=== PATIENT | male | born 1940 | race Caucasian/White ===

== ENCOUNTER 2019-09-21 08:13 | Outpatient (CLI) | payer MEDICARE, SELFPAY ==
--- NOTE | ~2019-09-21 | XR_ITS ---
EXAMINATION: XR chest 2V DATE: 09/21/2019 08:51 INDICATION: Hypertension. TECHNIQUE: Frontal and lateral views of the chest were obtained. COMPARISON: Chest 2 views 11/19/2018, CT abdomen and pelvis 04/23/2015 FINDINGS: The chest demonstrates clear lungs without pneumonia, pleural effusion, or pneumothorax. Th e heart size is normal. IMPRESSION: 1. No acute cardiopulmonary disease. Reviewed, dictated and finalized at location A.
[2019-09-21 08:31] LABS: Basophils Absolute Auto 0.02 K/mm3 (0.00-0.10); Basophils Percent Auto 0.3 % (0.0-1.0); Eosinophils Absolute Auto 0.01 K/mm3 (0.02-0.50); Eosinophils Percent Auto 0.2 % (1.0-6.0); Hematocrit 39.7 % (37.0-46.0); Hemoglobin 13.3 g/dL (12.4-15.3); Immature Granulocyte Absolute 0.01 K/mm3 (0.00-0.00); Immature Granulocyte Percent A 0.2 % (0.0-0.0); Lymphocytes Absolute Auto 1.15 K/mm3 (1.10-4.50); Lymphocytes Percent Auto 19.9 % (18.0-42.0); Mean Corpuscular HGB Conc 33.5 g/dL (32.0-36.0); Mean Corpuscular Hemoglobin 29.8 pg (27.0-31.0); Mean Corpuscular Volume 88.8 fL (78.0-102.0); Mean Platelet Volume 9.2 fl (8.7-11.0); Monocytes Absolute Auto 0.59 K/mm3 (0.10-0.90); Monocytes Percent Auto 10.2 % (2.0-11.0); Neutrophils Percent Auto 69.2 % (50.0-70.0); Platelet Count Result 193 K/mm3 (150-420); Red Blood Count 4.47 M/mm3 (4.70-6.10); White Blood Count 5.8 K/mm3 (4.8-10.8)
[2019-09-21 09:07] LABS: MALB Creatinine Ratio 7.4 mg/g (0-30); Microalbumin Urine Random 11.3 mg/L
[2019-09-21 09:36] LABS: Alanine Aminotransferase 24 U/L (16-63); Albumin Level 3.6 g/dL (3.4-5.0); Alkaline Phosphatase 66 U/L (46-116); Anion Gap 10.5 mmol/L (7-16); Aspartate Amino Transferase 20 U/L (15-37); Bilirubin,Total 0.8 mg/dL (0.00-1.00); Blood Urea Nitrogen 22 mg/dL (7-18); Carbon Dioxide 30 mmol/L (21-32); Chloride 106 mmol/L (98-108); Cholesterol 149 mg/dL (0-200); Creatine Kinase 100 U/L (39-308); Estimated Glomerular Filt Rate > 60; Glucose 91 mg/dL (70-99); HDL Direct 49 mg/dL (40-60); LDL Cholesterol Calculated 81 mg/dL (<130); Osmolality Calculated 297 mOsm/kg (285-295); Potassium 4.5 mmol/L (3.5-5.1); Prostate Specific Antigen 2.3 ng/mL (< OR = 4.0); Sodium 142 mmol/L (136-145); Thyroid Stimulating Hormone 2.88 uIU/mL (0.36-3.74); Total Protein 6.6 g/dL (6.4-8.2); Triglycerides 93 mg/dL (0-150)
== END 2019-09-21 08:14 | disposition home or self-care (01) ==
PROVIDERS: PCP Family Medicine; Visit Provider Family Medicine
DX: E78.2 Mixed hyperlipidemia (principal); I10 Essential (primary) hypertension; Z12.5 Encounter for screening for malignant neoplasm of prostate
CPT/HCPCS: 36415; 71046; 80053; 80061; 82043; 82550; 84153; 84443; 85025; G0103

== ENCOUNTER 2020-01-17 12:34 | Outpatient (CLI) | payer MEDICARE, SELFPAY ==
[2020-01-17 13:24] LABS: Influenza Control Valid (Valid)
[2020-01-17 13:57] LABS: Alanine Aminotransferase 30 U/L (16-63); Albumin Level 3.6 g/dL (3.4-5.0); Alkaline Phosphatase 68 U/L (46-116); Anion Gap 8 mmol/L (8-16); Aspartate Amino Transferase 30 U/L (15-37); Bilirubin,Total 1.5 mg/dL (0.00-1.00); Blood Urea Nitrogen 26 mg/dL (7-18); Calcium 8.7 mg/dL (8.5-10.1); Carbon Dioxide 27 mmol/L (21-32); Chloride 103 mmol/L (98-108); Creatine Kinase 178 U/L (39-308); Estimated Glomerular Filt Rate > 60; Glucose 97 mg/dL (70-99); Osmolality Calculated 290 mOsm/kg (285-295); Potassium 4.6 mmol/L (3.5-5.1); Sodium 138 mmol/L (136-145); Total Protein 6.5 g/dL (6.4-8.2)
[2020-01-17 16:59] LABS: Basophils Absolute Auto 0.01 K/mm3 (0.00-0.10); Basophils Percent Auto 0.2 % (0.0-1.0); Hematocrit 40.2 % (37.0-46.0); Hemoglobin 13.2 g/dL (12.4-15.3); Immature Granulocyte Absolute 0.02 K/mm3 (0.00-0.00); Immature Granulocyte Percent A 0.4 % (0.0-0.0); Lymphocytes Absolute Auto 0.49 K/mm3 (1.10-4.50); Lymphocytes Percent Auto 10.2 % (18.0-42.0); Mean Corpuscular HGB Conc 32.8 g/dL (32.0-36.0); Mean Corpuscular Hemoglobin 28.9 pg (27.0-31.0); Monocytes Absolute Auto 0.45 K/mm3 (0.10-0.90); Monocytes Percent Auto 9.4 % (2.0-11.0); Neutrophils Absolute Auto 3.8 K/mm3 (1.7-7.2); Neutrophils Percent Auto 79.8 % (50.0-70.0); Platelet Count Result 145 K/mm3 (150-420); Red Blood Count 4.57 M/mm3 (4.70-6.10); Red Cell Distribution Width 13.3 % (11.6-14.4); White Blood Count 4.8 K/mm3 (4.8-10.8)
[2020-01-17 17:10] LABS: Bilirubin Direct 0.3 mg/dL (0-0.2)
[2020-01-18 01:31] LABS: SARS-CoV-2 RNA PCR Negative
== END 2020-01-17 12:35 | disposition home or self-care (01) ==
LOC: CHSLAB 12:36
PROVIDERS: PCP Family Medicine; Visit Provider Family Medicine
DX: R53.83 Other fatigue (principal); E78.2 Mixed hyperlipidemia; R05 Cough; Z20.828 Contact with and (suspected) exposure to other viral communicable diseases
CPT/HCPCS: 80053; 82248; 82550; 85025; 86038; 87635; 87804; C9803; U0003

== ENCOUNTER 2020-01-21 09:43 | Outpatient (CLI) | payer MEDICARE, SELFPAY ==
--- NOTE | ~2020-01-21 | XR_ITS ---
EXAMINATION: XR chest 2V EXAM DATE: 01/21/2020 10:13 INDICATION: Fatigue, cough. TECHNIQUE: Frontal and lateral projections of the chest obtained and reviewed. Comparison is made to prior examination from 09/21/2019. FINDINGS: The lungs are clear. There are no pleural effusions. The cardiomediastinal silhouette is within normal limits. There is no pneumothorax suspected. Patient has diffuse idiopathic skeletal h yperostosis (DISH). IMPRESSION: No acute cardiopulmonary findings. Reviewed, dictated and finalized at location A. 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
[2020-01-21 10:28] LABS: Alanine Aminotransferase 42 U/L (16-63); Albumin Level 3.3 g/dL (3.4-5.0); Alkaline Phosphatase 64 U/L (46-116); Anion Gap 6 mmol/L (8-16); Aspartate Amino Transferase 41 U/L (15-37); Bilirubin,Total 1.2 mg/dL (0.00-1.00); Blood Urea Nitrogen 25 mg/dL (7-18); Calcium 8.4 mg/dL (8.5-10.1); Carbon Dioxide 28 mmol/L (21-32); Chloride 103 mmol/L (98-108); Creatine Kinase 159 U/L (39-308); Estimated Glomerular Filt Rate > 60; Glucose 93 mg/dL (70-99); Osmolality Calculated 288 mOsm/kg (285-295); Potassium 4.3 mmol/L (3.5-5.1); Sodium 137 mmol/L (136-145); Total Protein 6.6 g/dL (6.4-8.2); Troponin I 0.03 ng/mL (0.00-0.056)
== END 2020-01-21 09:44 | disposition home or self-care (01) ==
LOC: CHSLAB 09:47
PROVIDERS: PCP Family Medicine; Visit Provider Family Medicine
DX: I25.10 Atherosclerotic heart disease of native coronary artery without angina pectoris (principal); R53.83 Other fatigue; R05 Cough
CPT/HCPCS: 36415; 71046; 80053; 82550; 82553; 84484

== ENCOUNTER 2020-03-30 16:02 | Outpatient (CLI) | payer MEDICARE, SELFPAY ==
--- NOTE | ~2020-03-30 | CT_ITS ---
EXAMINATION: CT abdomen pelvis wo con DATE: 03/30/2020 17:00 INDICATION: Right flank pain TECHNIQUE: Computed tomography (CT) of the abdomen and pelvis was performed without intravenous contr ast. The dose-length product (DLP) was 726.51 mGy-cm. Automated exposure control and iterative recons truction technique were employed. COMPARISON: 04/23/2015 FINDINGS: There are multiple chronic smooth walled cysts in the visualized lung bases which may relat e to emphysema. The heart size is normal. The liver, spleen, pancreas, gallbladder, and adrenal gland s are normal. There is a 7 mm stone at the right ureteropelvic junction which causes mild hydronephro sis. Nonobstructing stones of the right kidney measure 6 mm and 8 mm in the upper and lower poles, re spectively. Nonobstructing stones of the left kidney measure up to 3 mm. No pathologically enlarged a bdominal or pelvic lymph nodes are identified. There is no free intraperitoneal gas or evidence of margareth wel obstruction. There is calcified atherosclerosis of the aorta and many of the other arteries. [place] catina diverticulosis is present without evidence of diverticulitis. The appendix is normal. There is se maura lumbar spondylosis. IMPRESSION: 1. 7 mm stone at the right ureteropelvic junction causing mild hydronephrosis. Consider KUB for treat ment planning purposes. 2. Bilateral nonobstructing nephrolithiasis. Reviewed, dictated and finalized at location A. ZE PLATER IMPRESSION: 1. 7 mm stone at the right ureteropelvic junction causing mild hydronephrosis. Consider KUB for treatment planning purposes. 2. Bilateral nonobstructing nephrolithiasis.
[2020-03-30 16:21] LABS: Add Urine Microscopic? YES; Appearance Urine Clear (Clear); Basophils Absolute Auto 0.02 K/mm3 (0.00-0.10); Basophils Percent Auto 0.2 % (0.0-1.0); Bilirubin Urine Negative (Negative); Blood Urine 3+ (Negative); Color Urine Yellow (Yellow); Glucose Urine UA Negative (Negative); Hemoglobin 13.4 g/dL (12.4-15.3); Immature Granulocyte Absolute 0.02 K/mm3 (0.00-0.00); Immature Granulocyte Percent A 0.2 % (0.0-0.0); Ketones Urine Trace (Negative); Leukocyte Esterase Ur Negative (Negative); Lymphocytes Absolute Auto 1.21 K/mm3 (1.10-4.50); Lymphocytes Percent Auto 12.2 % (18.0-42.0); Mean Corpuscular HGB Conc 32.7 g/dL (32.0-36.0); Mean Corpuscular Hemoglobin 28.5 pg (27.0-31.0); Mean Platelet Volume 9.3 fl (8.7-11.0); Monocytes Absolute Auto 0.66 K/mm3 (0.10-0.90); Monocytes Percent Auto 6.7 % (2.0-11.0); Neutrophils Percent Auto 80.7 % (50.0-70.0); Nitrate Urine Negative (Negative); Platelet Count Result 248 K/mm3 (150-420); Protein Urine 1+ (Negative); Red Blood Count 4.71 M/mm3 (4.70-6.10); Red Cell Distribution Width 12.5 % (11.6-14.4); Specific Grav Ur >= 1.030 (1.010-1.020); White Blood Count 9.9 K/mm3 (4.8-10.8)
[2020-03-30 16:30] LABS: RBC Urine >75 /hpf (0-2); WBC Urine 0-3 /hpf (0-3)
[2020-03-30 16:31] LABS: Bacteria Urine Trace /hpf; Mucus Urine Few /lpf; Squamous Epithelial Cell Urine Rare /hpf (Few)
[2020-03-30 16:52] LABS: Anion Gap 11 mmol/L (8-16); Blood Urea Nitrogen 20 mg/dL (7-18); Calcium 8.9 mg/dL (8.5-10.1); Carbon Dioxide 28 mmol/L (21-32); Chloride 104 mmol/L (98-108); Estimated Glomerular Filt Rate 58; Glucose 93 mg/dL (70-99); Osmolality Calculated 298 mOsm/kg (285-295); Potassium 4.3 mmol/L (3.5-5.1); Sodium 143 mmol/L (136-145)
== END 2020-03-30 16:03 | disposition home or self-care (01) ==
PROVIDERS: PCP Family Medicine; Visit Provider Family Medicine
DX: R10.9 Unspecified abdominal pain (principal)
CPT/HCPCS: 36415; 74176; 80048; 81001; 85025

== ENCOUNTER 2020-04-07 07:57 | Outpatient (CLI) | payer MEDICARE, SELFPAY ==
--- NOTE | ~2020-04-07 | XR_ITS ---
EXAMINATION: XR abdomen/kub 1V EXAM DATE: 04/07/2020 08:20 INDICATION: Right ureteral stone, flank pain. TECHNIQUE: Frontal projection of the upper abdomen, frontal projection lower abdomen/pelvis for inter pretation. Comparison is made to prior examination from 2016. Correlation was made with CT abdomen . FINDINGS: There appear to be 2 contiguous right proximal ureteral stones projecting over the L3 kent sverse process, larger measuring about 8 mm. There is additional right inferior calyceal stone. Moder ate amount of colonic stool. Nonobstructive bowel gas pattern. Moderate lower lumbar spondylosis and bilateral hip primary osteoarthritis. IMPRESSION: 1. Right proximal ureteral stone, nephrolithiasis identified. Reviewed, dictated and finalized at location A. 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
== END 2020-04-07 07:58 | disposition home or self-care (01) ==
LOC: CHSLAB 07:58 → CHSIMG 07:59
PROVIDERS: PCP Urology; Visit Provider Urology
DX: N20.1 Calculus of ureter (principal)
CPT/HCPCS: 74018

== ENCOUNTER 2020-04-16 09:57 | Outpatient (CLI) | payer MEDICARE, SELFPAY ==
[2020-04-16 10:26] LABS: Partial Thromboplastin Time 24.8 SEC (23.90-30.70); Prothrombin Time 10.3 Seconds (9.50-12.10)
== END 2020-04-16 09:58 | disposition home or self-care (01) ==
LOC: CHSLAB 09:59
PROVIDERS: PCP Family Medicine; Visit Provider Anesthesiology
DX: N20.0 Calculus of kidney (principal); Z01.812 Encounter for preprocedural laboratory examination; R10.9 Unspecified abdominal pain
CPT/HCPCS: 36415; 85610; 85730; 87086

== ENCOUNTER → 2020-04-21 03:56 | Outpatient (CLI) | payer MEDICARE, SELFPAY ==
[2020-04-22 18:18] LABS: SARS-CoV-2 RNA PCR Negative
== END ==
PROVIDERS: PCP Family Medicine; Visit Provider Urology
DX: Z01.812 Encounter for preprocedural laboratory examination (principal); Z20.822 Contact with and (suspected) exposure to COVID-19
CPT/HCPCS: C9803; U0003; U0005

== ENCOUNTER 2020-04-24 01:29 | Day surgery (SDC) | payer MEDICARE, SELFPAY ==
[2020-04-14 13:56] VITALS: BMI 29.2
--- NOTE | 2020-04-23 15:46 | WPDANESEPPF ---
Anes - Initial Pre Proc Eval Procedure: Operation Date: 04/24/20 08:30 Proposed Procedures p Right Ureteral Extracorporeal Shock Wave Lithotripsy - Flavio Mckeon MD Date/Time: 04/23/20 15:46 Surgeon: Flavio Mckeon MD Pre Op Diagnosis: right ureteral stone Patient Data Age: 79 Gender: M Height: 1.83 m Weight: 97.72 kg Allergies Allergy/AdvReac Type Severity Reaction Status Date / Time No Known Allergies Allergy Unverified 04/24/20 06:53 Home Medications Medication Instructions Recorded Confirmed Type atorvastatin 40 mg DAILY 04/14/20 04/24/20 History clopidogrel 75 mg DAILY 04/14/20 04/24/20 History losartan 25 mg DAILY 04/14/20 04/24/20 History metoprolol succinate 50 mg PO DAILY 04/14/20 04/24/20 History tamsulosin 0.4 mg PO HS 04/14/20 04/24/20 History aspirin [Adult Low Dose Aspirin] 81 mg PO DAILY 04/24/20 04/24/20 History Patient hx anesthesia problems: none Family hx anesthesia problems: none PMFSH Past Medical History Medical History (Updated 04/24/20 @ 07:23 by David Tobias MD) BPH (benign prostatic hyperplasia) CAD (coronary artery disease) CHF (congestive heart failure) HTN (hypertension) Hx of myocardial infarction Hyperlipidemia Overweight (BMI 25.0-29.9) Surgical History Surgical History (Updated 04/23/20 @ 15:48 by David Tobias MD) History of coronary artery stent placement Social History Social History Smoking status: Never smoker Second hand tobacco smoke exposure: No Additional smoking assessment comments: DENIES ALL FORMS OF TABACCO USE Alcohol intake: never Substance use: never Substance use type: does not use Living arrangements: with family Spiritual care concerns: No Anes - Eval Final PreProcedure Day of Procedure 04/23/20 15:46 Patient weight: overweight Heart: regular rate and rhythm Lungs: clear to auscultation and normal air movement Airway: Mallampati scale class II Neurological: alert and oriented Last oral intake: >/= 8 hours ASA classification: IV Emergent: no Anesthetic plan: proceed Anesthesia type and monitoring: general LMA Informed Consent: The patient's anesthetic plan and its attendant risks and benefits were discussed with the patient/family/POA. Questions were solicited and answers provided to the satisfaction of the patient/family/POA.
--- NOTE | ~2020-04-24 | XR_ITS ---
EXAMINATION: XR abdomen/kub 1V DATE: 04/24/2020 06:38 INDICATION: Right renal stone. TECHNIQUE: A supine view of the abdomen on 2 radiographs was obtained. COMPARISON: CT abdomen and pelvis 03/30/2020 FINDINGS: There are no dilated loops of bowel. There is a phlebolith in right pelvis. There is a 7 mm stone in proximal right ureter overlying the right L4 transverse process. The kidneys are obscured b y bowel. IMPRESSION: 1. 7 mm stone in proximal right ureter overlying the right L4 transverse process. Reviewed, dictated and finalized at location A. 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 7 mm stone in proximal right ureter overlying the right L4 transverse proces s.
--- NOTE | 2020-04-24 06:10 | ECG_ITS ---
Measurements Intervals [place] Rate: 67 P: -7 [place]: 225 QRS: -48 QRSD: 129 T: -25 QT: 375 QTc: 396 Interpretive Statements SINUS RHYTHM WITH FIRST DEGREE AV BLOCK INTRAVENTRICULAR CONDUCTION DELAY DELAYED PRECORDIAL R/S TRANSITION INFERIOR INFARCT, AGE INDETERMINATE BORDERLINE T WAVE ABNORMALITY- LATERAL LEADS ABNORMAL ECG Electronically Signed On 04-24-2020 7:59:45 FACULTY RESEARCH PHYSICIAN by Elgin Uribe D.O.
--- NOTE | 2020-04-24 06:37 | WPDHPUPDATE1 ---
History and Physical Update Update Date/Time: 04/24/20 06:37 History and Physical has been reviewed, including an updated exam of the patient. There are NO changes in the patient's condition. Risks, benefits, and alternatives have been discussed and questions answered. Patient agrees to proceed with procedure.
--- NOTE | 2020-04-24 06:38 | WPDHPUPDATE1 ---
History and Physical Update Update Date/Time: 04/24/20 06:38 History and Physical has been reviewed, including an updated exam of the patient. There are NO changes in the patient's condition. Risks, benefits, and alternatives have been discussed and questions answered. Patient agrees to proceed with procedure.
[2020-04-24 06:50] VITALS: BP 124/75; PULSE 75; RESP 20; TEMP 36.8; O2SAT 100
[2020-04-24] MEDS: LACTATED RINGERS 1,000 ML 30 ML IV CONT (07:40)
[2020-04-24] MEDS: ceFAZolin 2 GM/D5W 50 ML 2 GM/50 ML BAG IVPB (08:22)
--- NOTE | 2020-04-24 08:48 | PM.PROC ---
Procedure Note - Detailed Date of procedure: 04/24/20 Pre-op diagnosis: Right ureteral stone Post-op diagnosis: same Procedure performed: Right ESWL Description of procedure: The patient was brought to the operative suite where he was placed in the supine position on the Dornier lithotripsy table. The focal point of the lithotripter was placed at a 7mm right mid-ureteral calculus. A total of 3000 shocks were delivered at a power setting of 6. There appeared to be good fragmentation of the stone. The patient tolerated the procedure well and was taken to the recovery room in good condition. Anesthesia: GLMA Surgeon: Flavio Mckeon MD Drains: No Packing: No Pathology: none sent Complications: No immediate complications Condition: stable Disposition: PACU
[2020-04-24 09:15] VITALS: BP 132/73; PULSE 66; RESP 10; TEMP 36.3; O2SAT 100
[2020-04-24 09:24] VITALS: O2SAT 100
[2020-04-24 09:30] VITALS: BP 136/66; PULSE 60; RESP 13; O2SAT 100
[2020-04-24 09:48] VITALS: BP 136/71; PULSE 61; RESP 16
[2020-04-24 10:15] VITALS: BP 139/72; PULSE 59; RESP 16
== END 2020-04-24 10:25 | disposition home or self-care (01) ==
PROVIDERS: PCP Family Medicine; Visit Provider Urology
PROC: (CPT 50590; principal; 2020-04-24 08:30)
DX: N20.1 Calculus of ureter (principal); I11.0 Hypertensive heart disease with heart failure; I50.9 Heart failure, unspecified; I25.10 Atherosclerotic heart disease of native coronary artery without angina pectoris; N40.0 Benign prostatic hyperplasia without lower urinary tract symptoms; E78.5 Hyperlipidemia, unspecified; I25.2 Old myocardial infarction; Z79.02 Long term (current) use of antithrombotics/antiplatelets; Z79.82 Long term (current) use of aspirin; Z95.5 Presence of coronary angioplasty implant and graft
CPT/HCPCS: 50590; 74018; 93005; C9803; J0690; J1100; J2370; J2405; J2704; J7120; U0003; U0005

== ENCOUNTER 2020-05-19 12:38 | Outpatient (CLI) | payer MEDICARE, SELFPAY ==
--- NOTE | ~2020-05-19 | XR_ITS ---
EXAMINATION: XR abdomen/kub 1V EXAM DATE: 05/19/2020 13:02 INDICATION: BPH. History kidney stones. TECHNIQUE: Frontal projection of the upper abdomen, frontal projection lower abdomen/pelvis for inter pretation. 04/07/2020 FINDINGS: Previously seen stones overlying proximal aspect right ureter not specifically identified. No suspicious calcifications. Moderate thoracic spondylosis and hip osteoarthritis. Moderate amount o f colonic stool and gas. IMPRESSION: 1. No definite calcifications identified. Reviewed, dictated and finalized at location B. 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
== END 2020-05-19 12:39 | disposition home or self-care (01) ==
PROVIDERS: PCP Family Medicine; Visit Provider Urology
DX: N40.0 Benign prostatic hyperplasia without lower urinary tract symptoms (principal)
CPT/HCPCS: 74018

== ENCOUNTER 2020-07-03 09:40 | Outpatient (CLI) | payer MEDICARE, SELFPAY ==
--- NOTE | ~2020-07-03 | XR_ITS ---
XR shoulder RT min 2V DATE: 07/03/2020 10:07 INDICATION: Right shoulder and arm pain TECHNIQUE: 4 views COMPARISON: None FINDINGS: There is severe degenerative change at the acromioclavicular joint. No fracture or dislocat ion, periosteal reaction or bone destruction or abnormal soft tissue calcification. IMPRESSION: Degenerative change at right acromioclavicular joint Reviewed, dictated and finalized at location A.
--- NOTE | ~2020-07-03 | XR_ITS ---
XR humerus RT DATE: 07/03/2020 10:07 INDICATION: Right shoulder and arm pain TECHNIQUE: AP and lateral views of right humerus COMPARISON: None FINDINGS: No fracture, dislocation, periosteal reaction or bone destruction of the right humerus. Nor mal alignment at the glenohumeral and elbow joints. IMPRESSION: Negative Reviewed, dictated and finalized at location A. IMPRESSION: Negative
== END 2020-07-03 09:41 | disposition home or self-care (01) ==
LOC: CHSIMG 09:41
PROVIDERS: PCP Family Medicine; Visit Provider Family Medicine
DX: M79.601 Pain in right arm (principal)
CPT/HCPCS: 73030; 73060

== ENCOUNTER 2020-10-16 10:21 | Outpatient (CLI) | payer MEDICARE, SELFPAY ==
--- NOTE | ~2020-10-16 | XR_ITS ---
XR chest 2V DATE: 10/16/2020 10:46 INDICATION: Follow-up from heart attack TECHNIQUE: PA and lateral views COMPARISON: 01/21/2020 2 view chest FINDINGS: Normal heart size. There is mild aortic unfolding. No hilar or mediastinal enlargement. No pulmonary infiltrate or consolidation, pleural effusion or pulmonary vascular congestion or pneumo thorax. Diffuse idiopathic skeletal hyperostosis of the thoracic spine. IMPRESSION: No active cardiopulmonary disease or significant change since 01/21/2020 Reviewed, dictated and finalized at location B. IMPRESSION: No active cardiopulmonary disease or significant change since 01/20
[2020-10-16 10:35] LABS: Add Urine Microscopic? NO; Appearance Urine Clear (Clear); Basophils Absolute Auto 0.03 K/mm3 (0.00-0.10); Basophils Percent Auto 0.5 % (0.0-1.0); Bilirubin Urine Negative (Negative); Blood Urine Negative (Negative); Color Urine Light Yellow (Yellow); Glucose Urine UA Negative (Negative); Hematocrit 39.3 % (37.0-46.0); Hemoglobin 13.2 g/dL (12.4-15.3); Immature Granulocyte Absolute 0.01 K/mm3 (0.00-0.00); Immature Granulocyte Percent A 0.2 % (0.0-0.0); Ketones Urine Negative (Negative); Leukocyte Esterase Ur Negative (Negative); Lymphocytes Absolute Auto 1.22 K/mm3 (1.10-4.50); Lymphocytes Percent Auto 19.6 % (18.0-42.0); Mean Corpuscular HGB Conc 33.6 g/dL (32.0-36.0); Mean Corpuscular Hemoglobin 29.7 pg (27.0-31.0); Mean Corpuscular Volume 88.3 fL (78.0-102.0); Mean Platelet Volume 8.7 fl (8.7-11.0); Monocytes Absolute Auto 0.52 K/mm3 (0.10-0.90); Monocytes Percent Auto 8.4 % (2.0-11.0); Neutrophils Absolute Auto 4.4 K/mm3 (1.7-7.2); Neutrophils Percent Auto 71.3 % (50.0-70.0); Nitrate Urine Negative (Negative); Platelet Count Result 201 K/mm3 (150-420); Protein Urine Negative (Negative); Red Blood Count 4.45 M/mm3 (4.70-6.10); Red Cell Distribution Width 12.4 % (11.6-14.4); Specific Grav Ur 1.025 (1.010-1.020); Urobilinogen Urine 0.2 mg/dL (0.2-1.0); White Blood Count 6.2 K/mm3 (4.8-10.8); pH Urine 5.5 (5.0-8.0)
[2020-10-16 10:47] LABS: Microalbumin Urine Random < 13.0 mg/L
[2020-10-16 11:06] LABS: Alanine Aminotransferase 26 U/L (16-63); Albumin Level 3.7 g/dL (3.4-5.0); Alkaline Phosphatase 75 U/L (46-116); Anion Gap 10 mmol/L (8-16); Aspartate Amino Transferase 19 U/L (15-37); Bilirubin,Total 0.7 mg/dL (0.00-1.00); Blood Urea Nitrogen 24 mg/dL (7-18); Calcium 8.8 mg/dL (8.5-10.1); Carbon Dioxide 28 mmol/L (21-32); Chloride 109 mmol/L (98-108); Cholesterol 119 mg/dL (0-200); Estimated Glomerular Filt Rate > 60; Glucose 89 mg/dL (70-99); HDL Direct 50 mg/dL (40-60); LDL Cholesterol Calculated 56 mg/dL (<130); Osmolality Calculated 307 mOsm/kg (285-295); Potassium 4.4 mmol/L (3.5-5.1); Sodium 147 mmol/L (136-145); Thyroid Stimulating Hormone 1.88 uIU/mL (0.36-3.74); Total Protein 6.6 g/dL (6.4-8.2); Triglycerides 64 mg/dL (0-150)
== END 2020-10-16 10:22 | disposition home or self-care (01) ==
PROVIDERS: PCP Family Medicine; Visit Provider Family Medicine
DX: E78.2 Mixed hyperlipidemia (principal); I10 Essential (primary) hypertension; I25.10 Atherosclerotic heart disease of native coronary artery without angina pectoris
CPT/HCPCS: 36415; 71046; 80053; 80061; 81003; 82043; 84443; 85025

== ENCOUNTER 2022-09-15 09:25 | Outpatient (CLI) | payer MEDICARE, SELFPAY ==
--- NOTE | ~2022-09-15 | XR_ITS ---
Clinical Indication: Atherosclerotic heart disease PA and lateral views of the chest: Comparison: 10/16/2020 Findings: The lungs are clear, without evidence of focal consolidation or pleural effusion. Cardiome diastinal silhouette is within normal limits. DISH of the thoracic spine noted. Impression: No significant abnormality seen. Reviewed, dictated and finalized at location . Impression: No significant abnormality seen.
== END 2022-09-15 09:26 | disposition home or self-care (01) ==
LOC: CHSIMG 09:29
PROVIDERS: PCP Family Medicine; Visit Provider Family Medicine
DX: I25.10 Atherosclerotic heart disease of native coronary artery without angina pectoris (principal)
CPT/HCPCS: 71046

== ENCOUNTER 2023-04-17 10:41 | Outpatient (CLI) | payer MEDICARE, SELFPAY ==
--- NOTE | ~2023-04-17 | XR_ITS ---
EXAMINATION: XR chest 2V DATE: 04/17/2023 11:14 INDICATION: Right shoulder pain on inspiration. TECHNIQUE: Frontal and lateral views of the chest were obtained. COMPARISON: Chest 2 views 09/15/22, CT abdomen and pelvis 03/30/2020 FINDINGS: There are airspace opacities at right lung base. There is a small right pleural effusion. N o pneumothorax. The heart size is normal. IMPRESSION: 1. Airspace opacities at right lung base, consistent with atelectasis versus pneumonia. 2. Small right pleural effusion. Reviewed, dictated and finalized at location E. COLLECTION COORDINATOR IMPRESSION: 1. Airspace opacities at right lung base, consistent with atelectasis versus pn eumonia. 2. Small right pleural effusion.
--- NOTE | ~2023-04-17 | XR_ITS ---
EXAMINATION: XR shoulder RT min 2V DATE: 04/17/2023 11:14 INDICATION: Right shoulder pain on inspiration. TECHNIQUE: 4 views of right shoulder were obtained. COMPARISON: Right shoulder radiographs 07/03/2020 FINDINGS: Bone alignment is normal. No fracture. The glenohumeral joint is normal. There is severe ac romioclavicular joint osteoarthritis. IMPRESSION: 1. Severe right acromioclavicular joint osteoarthritis. Reviewed, dictated and finalized at location E. SMAN/OWNER
[2023-04-17 11:33] LABS: Basophils Absolute Auto 0.02 K/mm3 (0.00-0.10); Basophils Percent Auto 0.3 % (0.0-1.0); Hematocrit 38.9 % (37.0-46.0); Hemoglobin 12.9 g/dL (12.4-15.3); Immature Granulocyte Absolute 0.02 K/mm3 (0.00-0.00); Immature Granulocyte Percent A 0.3 % (0.0-0.0); Lymphocytes Absolute Auto 1.06 K/mm3 (1.10-4.50); Lymphocytes Percent Auto 14.7 % (18.0-42.0); Mean Corpuscular HGB Conc 33.2 g/dL (32.0-36.0); Mean Corpuscular Hemoglobin 28.5 pg (27.0-31.0); Mean Corpuscular Volume 86.1 fL (78.0-102.0); Mean Platelet Volume 8.7 fl (8.7-11.0); Monocytes Percent Auto 12.4 % (2.0-11.0); Neutrophils Absolute Auto 5.2 K/mm3 (1.7-7.2); Neutrophils Percent Auto 72.3 % (50.0-70.0); Platelet Count Result 196 K/mm3 (150-420); Red Blood Count 4.52 M/mm3 (4.70-6.10); Red Cell Distribution Width 12.5 % (11.6-14.4); White Blood Count 7.2 K/mm3 (4.8-10.8)
[2023-04-17 12:09] LABS: Anion Gap 7 mmol/L (8-16); Carbon Dioxide 29 mmol/L (21-32); Chloride 103 mmol/L (98-108); Potassium 3.9 mmol/L (3.5-5.1); Sodium 139 mmol/L (136-145); Troponin I 32.8 ng/L (0.00-60.4)
[2023-04-17 12:31] LABS: Alanine Aminotransferase 20 U/L (16-63); Albumin Level 3.3 g/dL (3.4-5.0); Alkaline Phosphatase 78 U/L (46-116); Aspartate Amino Transferase 15 U/L (15-37); Bilirubin,Total 1.8 mg/dL (0.00-1.00); Blood Urea Nitrogen 21 mg/dL (7-18); Calcium 8.5 mg/dL (8.5-10.1); Creatine Kinase 69 U/L (39-308); Estimated Glomerular Filt Rate > 60; Glucose 93 mg/dL (70-99); Osmolality Calculated 291 mOsm/kg (285-295)
[2023-04-17 13:37] LABS: Bilirubin Direct 0.3 mg/dL (0-0.2)
== END 2023-04-17 10:42 | disposition home or self-care (01) ==
LOC: CHSIMG 10:43
PROVIDERS: PCP Family Medicine; Visit Provider Family Medicine
DX: M25.511 Pain in right shoulder (principal); R07.9 Chest pain, unspecified
CPT/HCPCS: 36415; 71046; 73030; 80053; 82248; 82550; 82553; 84484; 85025

== ENCOUNTER 2023-04-20 08:23 | Outpatient (CLI) | payer MEDICARE, SELFPAY ==
--- NOTE | ~2023-04-20 | US_ITS ---
EXAMINATION: US abdomen complete DATE: 04/20/2023 08:50 INDICATION: Elevated bilirubin TECHNIQUE: Multiple grayscale and Doppler ultrasound images of the abdomen were obtained. COMPARISON: None available FINDINGS: The head and body of the pancreas are normal. The pancreatic tail is obscured by bowel gas. The liver is normal with normal echogenicity and echotexture. No surface nodularity. Normal hepatope keisha flow in the main portal vein. The gallbladder is normal with no abnormal wall thickening, pericho lecystic fluid or stones. The normal common bile duct measures 5 mm. There was no sonographic Rollins sign. The visualized portions of the aorta and inferior vena cava are normal. The spleen is normal in appearance and measures 12.9 cm. The right kidney measures 11.8 x 5.1 x 5.7 c m. The left kidney measures 12.1 x 4.4 x 5.3 cm. The kidneys demonstrate normal parenchymal echogenic ity. There is no hydronephrosis. IMPRESSION: 1. No sonographic correlate for the patient's symptoms. Reviewed, dictated and finalized at location L. NHOUSE LABORER
== END 2023-04-20 08:24 | disposition home or self-care (01) ==
LOC: CHSIMG 08:25
PROVIDERS: PCP Family Medicine; Visit Provider Family Medicine
DX: R74.01 Elevation of levels of liver transaminase levels (principal)
CPT/HCPCS: 76700

== ENCOUNTER 2023-05-19 08:49 | Outpatient (CLI) | payer MEDICARE, SELFPAY ==
--- NOTE | ~2023-05-19 | XR_ITS ---
Clinical Indication: Post pleurisy PA and lateral views of the chest: Comparison: 04/17/2023 Findings: The lungs are clear, without evidence of focal consolidation or pleural effusion. Cardiome diastinal silhouette is within normal limits. Bones and soft tissues are unremarkable. Impression: Normal chest. Reviewed, dictated and finalized at [facility]. F OCCUPATIONAL THERAPIST Impression: Normal chest.
== END 2023-05-19 08:50 | disposition home or self-care (01) ==
LOC: CHSIMG 08:51
PROVIDERS: PCP Family Medicine; Visit Provider Family Medicine
DX: M25.511 Pain in right shoulder (principal)
CPT/HCPCS: 71046

== ENCOUNTER 2023-06-26 16:11 | Outpatient (CLI) | payer MEDICARE, SELFPAY ==
[2023-06-26 16:35] LABS: Appearance Urine Clear (Clear); Basophils Absolute Auto 0.04 K/mm3 (0.00-0.10); Basophils Percent Auto 0.6 % (0.0-1.0); Bilirubin Urine Negative (Negative); Blood Urine Negative (Negative); Color Urine Yellow (Yellow); Eosinophils Absolute Auto 0.17 K/mm3 (0.02-0.50); Eosinophils Percent Auto 2.8 % (1.0-6.0); Glucose Urine UA Negative (Negative); Hematocrit 37.3 % (37.0-46.0); Hemoglobin 12.3 g/dL (12.4-15.3); Immature Granulocyte Absolute 0.03 K/mm3 (0.00-0.00); Immature Granulocyte Percent A 0.5 % (0.0-0.0); Ketones Urine Negative (Negative); Leukocyte Esterase Ur Negative (Negative); Lymphocytes Absolute Auto 1.19 K/mm3 (1.10-4.50); Lymphocytes Percent Auto 19.3 % (18.0-42.0); Mean Corpuscular Hemoglobin 28.4 pg (27.0-31.0); Mean Corpuscular Volume 86.1 fL (78.0-102.0); Mean Platelet Volume 9.1 fl (8.7-11.0); Neutrophils Absolute Auto 3.93 K/mm3 (1.70-7.20); Neutrophils Percent Auto 63.8 % (50.0-70.0); Nitrate Urine Negative (Negative); Platelet Count Result 200 K/mm3 (150-420); Protein Urine Negative (Negative); Red Blood Count 4.33 M/mm3 (4.70-6.10); Red Cell Distribution Width 12.6 % (11.6-14.4); Specific Grav Ur >= 1.030 (1.010-1.020); Urobilinogen Urine 0.2 mg/dL (0.2-1.0); White Blood Count 6.2 K/mm3 (4.8-10.8)
[2023-06-26 16:36] LABS: Add Urine Microscopic? NO
[2023-06-26 16:55] LABS: Alanine Aminotransferase 23 U/L (16-63); Albumin Level 3.4 g/dL (3.4-5.0); Alkaline Phosphatase 75 U/L (46-116); Anion Gap 7 mmol/L (4-12); Aspartate Amino Transferase 19 U/L (15-37); Bilirubin,Total 0.9 mg/dL (0.00-1.00); Blood Urea Nitrogen 21 mg/dL (7-18); Calcium 8.3 mg/dL (8.5-10.1); Carbon Dioxide 29 mmol/L (21-32); Chloride 108 mmol/L (98-108); Estimated Glomerular Filt Rate > 60; Glucose 75 mg/dL (70-99); Osmolality Calculated 300 mOsm/kg (285-295); Potassium 4.2 mmol/L (3.5-5.1); Sodium 144 mmol/L (136-145)
== END 2023-06-26 16:12 | disposition home or self-care (01) ==
LOC: CHSLAB 16:13
PROVIDERS: PCP Family Medicine; Visit Provider Family Medicine
DX: R10.30 Lower abdominal pain, unspecified (principal)
CPT/HCPCS: 36415; 80053; 81003; 85025

== ENCOUNTER 2023-06-27 09:11 | Outpatient (CLI) | payer MEDICARE, SELFPAY ==
--- NOTE | ~2023-06-27 | CT_ITS ---
Non-contrast CT scan of the Abdomen and Pelvis Clinical indication: Right flank pain Technique: 2.5 mm axial scans were obtained through the abdomen and pelvis without intravenous or or al contrast. Dose reduction technique was used on this scan by utilizing automated exposure control a nd iterative reconstruction technique. The dose-length product (DLP) was 370.13 mGy-cm. Findings: Images through the lung bases reveal scattered small pulmonary cysts. Punctate nonobstructing bilateral renal stones are present. No ureteral stones or hydronephrosis seen . The liver, spleen, pancreas, gallbladder, and adrenals appear normal. There are atherosclerotic calci fications of the aorta. There is no evidence of bowel obstruction. Images through the pelvis were performed. There is no evidence of ascites or lymphadenopathy. Urinary bladder unremarkable. Prostate gland is enlarged. Impression: Punctate bilateral nonobstructing renal stones. Enlarged prostate gland. Reviewed, dictated and finalized at [facility]. Impression: Punctate bilateral nonobstructing renal stones. Enlarged prostate gland.
== END 2023-06-27 09:12 | disposition home or self-care (01) ==
LOC: CHSIMG 09:12
PROVIDERS: PCP Family Medicine; Visit Provider Family Medicine
DX: R10.30 Lower abdominal pain, unspecified (principal); N20.0 Calculus of kidney; N40.0 Benign prostatic hyperplasia without lower urinary tract symptoms
CPT/HCPCS: 74176

== ENCOUNTER 2024-08-27 08:13 | Outpatient (CLI) | payer MEDICARE, SELFPAY ==
--- NOTE | ~2024-08-27 | XR_ITS ---
Clinical Indication: Cough PA and lateral views of the chest: Comparison: 05/19/2023 Findings: The lungs are clear, without evidence of focal consolidation or pleural effusion. Cardiome diastinal silhouette is within normal limits. Bones and soft tissues are unremarkable. Impression: Normal chest. Reviewed, dictated and finalized at location . Impression: Normal chest.
--- OUTSIDE RECORDS SUMMARY | 2024-08-27 08:22 | XMS_ITS | Continuity of Care Document ---
Author Organization [facility] [place] Address [id number] [place] [address] [place] [phone] Phone Care Team Providers Care Project Account Manager Name Role Phone Lucrecia Dillon OD Unavailable Unavailable Allergies, Adverse Reactions, Alerts Substance Reaction Status Criticality No Known Allergies Active No Inform ation Medications Medication Instructions Dosage Effective Dates (start - stop) Status Comments Miebo 100 % eye drops instill 1 drop by ophthalmic route 4 times every day into affected eye(s) 1.00 drop - Active FISH OIL (unknown strength) take 1 tablet once daily Not Available - Active atorvastatin 40 mg tablet take 1 tablet by oral route every day 40 MG - Active clopidogrel 75 mg tablet take 1 tablet by oral route every day 75 MG - Active losartan 25 mg tablet take 1 tablet by oral route every day 25 MG - Active metoprolol succinate ER 50 mg tablet,extended release 24 hr take 1 tablet by oral route every day 50 MG - Active Centrum Silver 0.4 mg-300 mcg-250 mcg tablet take 1 tablet by oral route every day 1 tablet - Active Aspirin Low Dose 81 mg Tab, Delayed Release take 1 tablet (81MG) by ORAL route every day 81 MG - Active Procedures Procedure Date No Charge Optomap Fundus Photos Eye Exam & Treatment Fundus Photography W/ Report Eye Exam & Treatment Post-op Follow-up Visit No Charge Optomap Fundus Photos No Charge Refraction SCODI, Retina After Cataract Laser Surgery Eye Exam & Treatment No Charge GDX Retina Post-op Follow-up Visit No Charge Optomap Fundus Photos 021 No Charge GDX Retina No Charge Refraction Post-op Follow-up Visit Refraction Post-op Follow-up Visit Post-op Follow-up Visit Remove Cataract, Insert Lens IOLMaster-Professional No Charge Refraction No Charge Optomap Fundus Photos 021 Office/outpatient Visit, Est No Charge GDX Retina No Charge Refraction No Charge Optomap Fundus Photos 020 Office/outpatient Visit, Est SCODI, Retina Office/outpatient Visit, Est No Charge Refraction No Charge GDX Retina Post-op Follow-up Visit Post-op Follow-up Visit Remove Cataract, Insert Lens IOLMaster-Professional No Charge GDX Retina No Charge Optomap Fundus Photos 020 No Charge Orbscan IOLMaster-Technical No Charge Refraction Office/outpatient Visit, Est Fundus Photography W/ Report Eye Exam & Treatment No Charge Optomap Fundus Photos 019 No Charge Orbscan Office/outpatient Visit, Est Fundus Photography W/ Report Refraction Corneal Pachymetry Eye Exam & Treatment No Charge Refraction Fundus Photography W/ Report Eye Exam & Treatment Office/outpatient Visit, Est Fundus Photography W/ Report Office/outpatient Visit, Est No Charge Optomap Fundus Photos 016 Office/outpatient Visit, Est No Charge Refraction No Charge Glasses Check Vision Svcs Frames Purchases Progressive Lens Per Lens Eye Exam & Treatment IOLMaster IOLMaster No Charge Refraction No Charge Optomap Fundus Photos 015 Office/outpatient Visit, Est No Charge Refraction Eye Exam & Treatment No Charge Optomap Fundus Photos 014 Eye Exam, New Patient Certified EMR Advance Directives Directive Yes / No Effective Date File Name Other Directive No N/A N/A WARNING:The information contained in this section is historical and is provided for information only and does not constitute a legal document or any assurance that the information is still accurate. Please verify the information with the salmeron of the legal document before using it for clinical purposes. Encounters Encounter Description Practice Location Reason(s) For Visit Diagnoses Date Provider Providers [facility]ied on [facility], [facility] [address], [place], [place], [address], tel:[phone] SEC [place] Professional Complete Exam (chief complaint) Presence of intraocular lensPapilloma Dry eyes, bilateral 202 4 Santana OD Lucrecia. [address] [place] [address] [address] [address], [address], [place], [place], [address], [place]. tel:[phone] Ame Sahni MD.Referri Provider: Charly Abernathy, [address], [place], [address] . tel:[phone] [facility], [address] [address], [place], [place], [address], tel:[phone] SEC [place] Professional Complete Exam (chief complaint) Epiretinal membrane (ERM) of right eyePresence of intraocular lensDry eye syndrome of left lacrimal gland 3 Onel Gonzalez. [address] [facility] [facility] [place], [facility] [address], [place], [place], [address], [place]. tel:[phone] Ame Sahni MD.Referri ng Provider: Charly Abernathy, [address], [place], [address] . tel:[phone] [facility], [facility] [address], [place], [place], [address], [place] tel:[phone] SEC [place] Professional Post-Op (chief complaint) Post op visit 2 Onel Gonzalez. [address] [facility], [address], [place], [place], [address], [place]. tel:[phone] Ame Sahni MD.Referri ng Provider: Charly Abernathy, [address], [place], [address] . tel:[phone] [facility] [employer] [facility], [address], [place], [place], [address], [place] tel:[phone] SEC [place] Professional Complete Exam (chief complaint) Presence of intraocular lensOther secondary cataract, right eyeEpiretinal membrane (ERM) of right eyeDry eye syndrome of left lacrimal glandPapillom a 2 Onel Gonzalez. [address] [employer], [facility] A, [place], [place], [address], [place]. tel:[phone] Ame Sahni MD.Referri ng Provider: Charly Abernathy, [address], [place], [address] . tel:[phone] [facility], [address] [address], [place], [place], [address], [place] tel:[phone] SEC [place] Professional Post-Op (chief complaint) Post op visit 1 Onel Gonzalez. [address] [employer], [address], [place], [place], [address], [place]. tel:[phone] Ame Sahni MD.Referri ng Provider: Charly Abernathy, [address], [place], [address] . tel:[phone] [facility], [facility] [address], [place], [place], [address], [place] tel:[phone] SEC [place] Professional Blurry vision (chief complaint) Post op visit 1 Onel Gonzalez. [address] [facility], [address], [place], [place], [address], [place]. tel:[phone] Ame Sahni MD.Referri ng Provider: Charly Abernathy, [facility] [address], [place], [address] . tel:[phone] [facility], [facility] [address], [place], [place], [address], [place] [phone] SEC [place] Professional Post-Op (chief complaint) Post op visit 1 No Information Referring Provider: hCarly Abernathy, [facility] [address], [place], [address] . tel:[phone] [facility], [facility] [address], [place], [place], [address], [place] tel:[phone] SEC [place] Professional 1 day CE PO (chief complaint) Post op visit 1 Onel Gonzalez. [address] [employer] [place], [address], [place], [place], [address], . tel:[phone] Referring Provider: Charly Abernathy, [address], [place], [address] . tel:[phone] [facility], [address] [place] [address] [address], [place], [place], [address], [place] tel:[phone] [facility] Kimberly No Information 1 Chris Parks. [address] [place] [address] [employer] [facility], [address], [place], [place], [address], [place]. tel:[phone] Referring Provider: Charly Abernathy, [address] [place] [address] [address], [place], [address] . tel:[phone] [facility], [address] [place] [address] [address], [place], [place], [address], [place] tel:[phone] SEC [place] No Information 1 Chris Parks. [address] [place] [address] [employer] [facility], [address], [place], [place], [address], [place]. [phone] Referring Provider: Charly Abernathy, [address] [place] [address] [employer] [facility] [address], [place], [address] . tel:[phone] Office/outpa tient Visit, [facility], [address] [place] [address] [address], [place], [place], [address], [place] tel:[phone] SEC [place] Professional Cataract evaluation (chief complaint) Combined forms of age-related cataract, left eyePresence of intraocular lens 1 Chris Parks. [address] [place] [address] [employer] [facility], [address], [place], [place], [address], [place]. tel:[phone] Ame Sahni MD.Referri ng Provider: Charly Abernathy, [address] [place] [address] [employer] [facility] [address], [place], [address] . tel:[phone] Office/outpa tient Visit, [facility], [address] [place] [address] [address], [place], [place], [address], [place] [phone] SEC [place] Professional Cataract Eval OS (chief complaint) Combined forms of age-related cataract, left eyePresence of intraocular lensOther secondary cataract, right eye Dec-0 0 Chris Parks. [facility] Handle, [address], [place], [place], [address], [place]. tel:[phone] Ame Sahni MD.Referri ng Provider: Charly Abernathy, [facility] [address], [place], [address] . tel:[phone] Office/outpa tient Visit, [facility], [facility] [address], [place], [place], [address], [place] tel:[phone] SEC Myra N Lindbergh 1 month retina FU (chief complaint) Macular edema Cabrera- 0 Chris Parks. [facility] Handle, [address], [place], [place], [address], [place]. tel:[phone] Specialist : Ame Sahni MD, [address] [facility] [address], [place], [address]. tel:[phone] cialist: Ame Sahni MD, [address] [facility] [address], [place], [address]. tel:[phone] erring Provider: Charly Abernathy, [facility] [address], [place], [address] . tel:[phone] [facility], [facility] [address], [place], [place], [address], [place] tel:[phone] SEC Hyampom N Lindbergh Post-Op (chief complaint) Post op visitMacular edema July- 0 Chris Parks. [facility] Handle, [address], [place], [place], [address], [place]. tel:[phone] Referring Provider: Charly Abernathy, [facility] [address], [place], [address] . tel:[phone] [facility], [facility] [address], [place], [place], [address], [place] tel:[phone] SEC Myra Bertrand Post-Op (chief complaint) Post op visit Apr-2 0-202 0 Chris Parks. [facility] Handle, [address], [place], [place], [address], [place]. tel:[phone] Referring Provider: Charly Abernathy, [facility] [address], [place], [address] . tel:[phone] [facility], [address] [place], [place] [address]crest [address], [place], [place], [address], [place] tel:[phone] SEC Jacobo Hughes Post-Op (chief complaint) Presence of intraocular lens May- 0 Onel Gonzalez. [address] [facility], [address], [place], [place], [address], [place]. [phone] Referring Provider: Charly Abernathy, [facility] [address], [place], [address] . tel:[phone] [facility], [facility] [address], [place], [place], [address], [place] tel:[phone] [facility] Kimberly No Information 0 Chris Parks. [facility] Handle, [address], [place], [place], [address], [place]. [phone] Referring Provider: Charly Abernathy, [address], [place], [address] . tel:[phone] [facility], [facility] [address], [place], [place], [address], [place] [phone] [place] No Information 0 Chris Parks. [facility] Handle, [address], [place], [place], [address], [place]. tel:[phone] Referring Provider: Charly Abernathy, [address], [place], [address] . tel:[phone] Office/outpa tient Visit, [facility], [address] [place] [address] [address], [place], [place], [address], tel:[phone] SEC Orange DE[place] Professional Cataract check (chief complaint) Combined forms of age-related cataract, bilateralSebo rrheic keratosis 0 Chris Parks. [address] [place] [address] [employer], [address], [place], [place], [address], [place]. tel:[phone] Referring Provider: Charly Abernathy, [address] [place] [address] [address] [facility] [address], [place], [address] . tel:[phone] [facility], [address] [place] [address] [address], [place], [place], [address], tel:[phone] SEC Orange DELL Professional Complete Exam (chief complaint) Combined forms of age-related cataract, bilateralOpen angle with borderline findings, low risk, bilateral 9 Chris Parks. [address] [place] [address] [employer] [facility], [address], [place], [place], [address], [place]. tel:[phone] Referring Provider: Charly Abernathy, [address] [place], [place] [address]crest [employer] [facility] [address], [place], [address] . tel:[phone] Office/outpa tient Visit, [facility], [address] [place] [address] [address], [place], [place], [address], [place] tel:[phone] SEC Jacobo DELL Professional Cataract ck (chief complaint) Combined forms of age-related cataract, bilateralSebo rrheic verruca 9 Chris Parks. [address] [place], [place] [address]crest [employer], [address], [place], [place], [address], . tel:[phone] Referring Provider: Charly Abernathy, [address] [place], [place] [address]crest [employer] [facility] [address], [place], [address] . tel:[phone] [facility], [facility] [address], [place], [place], [address], [place] tel:[phone] SEC [place] Professional Complete Exam (chief complaint) Combined forms of age-related cataract, bilateralOpen angle with borderline findings, low risk, bilateral Sep- 0 8 Chris Parks. [facility] Handle, [address], [place], [place], [address], [place]. tel:[phone] Referring Provider: Charly Abernathy, [facility] [address], [place], [address] . tel:[phone] [facility], [facility] [address], [place], [place], [address], [place] [phone] SEC [place] Professional Complete Exam (chief complaint) Age-related nuclear cataract, right eyeAge-relate d nuclear cataract, left eyeSeborrheic keratosisOpen angle with borderline findings, low risk, bilateral 7 Chris Parks. [facility] Handle, [address], [place], [place], [address], [place]. [phone] Referring Provider: Charly Abernathy, [facility] [address], [place], [address] . tel:[phone] [facility]pa tient Visit, [facility], [facility] [address], [place], [place], [address], [place] [phone] SEC Albert [facility] IOP ck (chief complaint) No Information 7 Chris Parks. [facility] Handle, [address], [place], [place], [address], [place]. tel:[phone] Referring Provider: Charly Abernathy, [facility] [address], [place], [address] . tel:[phone] Office/outpa tient Visit, [facility], [facility] [place] [address], [place], [place], [address], [place] tel:[phone] SEC Jacobo SHARPE Professional cataract check (chief complaint) No Information 6 Mchenry Charly. [facility] [place] [address], [address], [place], [place], [address], [place]. tel:[phone] Referring Provider: Charly Abernathy, [address] [place] [address] [address] [facility] [address], [place], [address] . tel:[phone] Office/outpa tient Visit, [facility], [address] [place] [address] [address], [place], [place], [address], [place] tel:[phone] SEC Jacobo SHARPE Professional Difficulty reading (chief complaint) No Information 6 Chris Charly. [facility] [place] [address], [address], [place], [place], [address], [place]. tel:[phone] Referring Provider: Charly Abernathy, [facility] [place] [facility] [facility] [address], [place], [address] . tel:[phone] [facility], [address] [place] [address] [address], [place], [place], [address], [place] tel:[phone] SEC Myra Alegria Lindbergh Glasses recheck (chief complaint) No Information 0 5 Sarah Clifford. [address], [address], [place], [place], [address], [place]. tel:[phone] Referring Provider: Charly Abernathy, [facility] [place] [facility] [facility] [address], [place], [address] . tel:[phone] [facility], [address] [place] [address] [address], [place], [place], [address], [place] tel:[phone] SEC Myra N Lindbergh No Information 2 5 [employer]. [address], [address], [place], [place], [address], [place]. tel:[phone] Referring Provider: Charly Abernathy, [facility] [address], [place], [address] . tel:[phone] sulting Provider: Delfin Lopez, [address] [facility] [address], [place], [address] . tel:[phone] [facility] [employer] [facility], [facility] [address], [place], [place], [address], [place] [phone] SEC [place] Professional Cataract check (chief complaint) No Information 5 Chris Parks. [facility] Handle, [address], [place], [place], [address], [place]. [phone] Referring Provider: Charly Abernathy, [facility] [address], [place], [address] . tel:[phone] Office/outpa tient Visit, [facility] [employer] [facility], [facility] [address], [place], [place], [address], [place] [phone] SEC [place] Professional 6 month cataract check (chief complaint) No Information 5 Chris Parks. [facility] Handle, [address], [place], [place], [address], [place]. [phone] Referring Provider: Charly Abernathy, [facility] [address], [place], [address] . tel:[phone] [facility], [facility] [address], [place], [place], [address], [place] [phone] SEC [place] Professional routine exam (chief complaint) No Information 4 Chris Parks. [facility] Handle, [address], [place], [place], [address], [place]. [phone] Referring Provider: Charly Abernathy, [facility] [address], [place], [address] . tel:[phone] [facility], [address] [facility] [address], [place], [place], [address], tel:[phone] LUIGI SHARPE Professional No Information 2 Chris Parks. [address] [address] [facility], [address], [place], [place], [address], [place]. tel:[phone] Referring Provider: Charly Abernathy, [address] [address] [facility] [facility] [address], [place], [address] . tel:[phone] Family History Family Member Type Diagnosis Age At Onset Mother Problem (finding) diabetes melli tus in first degree relative Payers Payer name Insurance type Covered green party ID Authoraprila bostonaziza(s) [employer] Mdcr Gold Adv Prime CI [id number] Social History Type Description Quantity Date Captured Comments Alcohol Use Details No Caffeine Use Details coffee 3 cups per day Tobacco Use Status Ex-cigarette smoker 024 Smoking Status Former smoker Smoking Tobacco Use Details Cigarette: Age Stopped: 30 Cigarette: No Details Available Sex Male Chief Complaint And Reason For Visit From encounter dated '2023 08:30'. Complete Exam (chief complaint). Description: The 82 year old patient presents for a complete exam ou. Patient is pseudo ou. Patient denies any changes in vision ou. Patient is very happy with his cataract sx. Reason For Referral Reason For Referral No Information Plan Of Treatment Date Type Action Status Goal Tobacco cessation counseling completed Goal Tobacco cessation counseling completed Referral Referred To: [facility] [address] [place], [id number] Ordered: Referrals: Allopathic & Osteopathic Physicians : Ophthalmology. AME SAHNI. Consult ordered Patient Education Dry Eyes: Care Instruct ions completed Patient Education Learning About YAG Lase r Capsulotomy completed Patient Education Cataract Surgery: What to Expect at H~ completed Patient Education Cataract Surgery: What to Expect at H~ completed Patient Education Cataract Surgery: What to Expect at H~ completed Patient Education Cataracts: Care Instruc tibeba completed Patient Education Cataracts: Care Instruc tions completed Patient Education Cataracts: Care Instruc tions completed History Of Present Illness Encounter Date Complaint History Of Prese nt Illness Complete Exam The 82 year old patient presents for a complete exam ou. Patient is pseudo ou. Patient denies any changes in vision ou. Patient is very happy with his cataract sx. Complete Exam The 81 year old patient presents for evaluation of Complete Exam in the right eye and left eye. Patient denies any changes with his eyes. VA seems stable OU. Post-Op The 80 year old client presents for a 5 week post op YAG PC OD. Patient states vision OD is better. Patient states vision seems to be back to normal. Complete Exam The 80 year old male presents for a complete exam ou. Patient is pseudo ou. Patient is a glaucoma suspect ou and has hx of mac edema ou. Patient states OD isn't as crisp as OS. Patient is having a hard time reading small print and seeing road signs. Patient states the lights at night are bothersome. Post-Op The 80 year old male presents for a 1 month CME OS follow up s/p CE OS 07/23/20. Patient states OS is doing good. Patient no longer sees the netting in vision. Blurry vision The 80 year old male presents for evaluation of Blurry vision in the left eye. 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 Pt reports VA has been clear after CE, OS, but over the weekend he noticed OS is foggy again, kind of like when he had CME after he had CE done on OD. Pt reports he isn't using any gtts, OU. Post-Op The 79 year old male presents for a 2 week post op CE OS (Dr. Perez). Patient is using Pred bid OS and Ketorolac tid OS. Patient states OS is doing good. 1 day CE PO The 79 year old male presents for evaluation of 1 day CE PO in the left eye. Pt reports he is using Poly QID OS, Pred QID OS, and Ketorolac TID OS. PO instructions were given, explained and understood by pt. Pt reports no pain or discomfort today. Cataract evaluation The 79 year old male presents for a cataract evaluation OS. Patient is pseudo OD and is a glaucoma suspect. Patient is having a hard time reading small print. Patient is having a hard time driving at night due to glare from oncoming headlights. Patient states OD is doing good. Cataract Eval OS The 79 year old male presents for evaluation of Cataract Eval OS in the left eye. Hx PCIOL OD (05/23/19), Cataract OS, Glaucoma Suspect OU, CME OD. Pt is cleared for CE OS per Dr. Sahni, last seen 02/10/20. Pt reports trouble driving at night, he sees glare from oncoming headlights at night. Pt reports trouble reading small print at near such as newspapers, books, and medicine bottles x many years OS. 1 month retina FU The 78 year ol d male presents for evaluation of 1 month retina FU in the right eye. Pt has Hx of PCIOL OD, cataract OS, CME OD, glc suspect OU and david keratosis RLL. Pt feels vision is getting better over the last few weeks and is instilling Ketorolac OD tid. Post-Op The 78 year old male presents for a 4 week follow up s/p CE OD on05/22. Patient is using Ketorolac tid OD. Patient states OD is a little better from last visit. Patient would like to wait for CE OS. Post-Op The 78 year old male presents for a Post-Op visit in the right eye. S/P Phaco with PCIOL OD 05/23/19. The patient states initially after the surgery his vision was great. A few weeks later things started to get blurry. Not as crisp as it was initially following surgery. The patient finished all post op drops. Post-Op The 78 year old male presents for a 1 day post op CE OD. Patient to begin Pred and Poly qid OD. Patient denies any pain or discomfort. Cataract check The 78 year old male presents for evaluation of Cataract check in the right eye and left eye. Hx Cataract OU, Glaucoma Suspect OU. Pt reports that he is not ready for cataract surgery. Pt reports glare while driving at night and trouble reading street signs. Pt reports trouble while driving at night OD > OS x many years. Pt does not take gtts. Complete Exam The 78 year old male presents for a complete exam ou monitoring cataracts ou, glaucoma suspect. Patient denies any changes in vision ou. Patient states he is not ready for CE. Patient doesn't use any drops. Cataract ck The 77 year old male presents for evaluation of Cataract ck in the right eye and left eye. Hx of CAT OU, low risk OAG OU, and David Keratosis OD. Pt states vision is clear and stable OU at distance and near x 6 mos. Pt is very happy with new gls. Complete Exam The 77 year old male presents for evaluation of Complete Exam in the right eye and left eye. Hx of CAT OU, low risk OAG OU, and David Keratosis OD. Pt uses Tamsulosin. Pt reports OU VA seems to be doing pretty good, he knows Dr. Perez says he has a CAT, but he doesn't think it is affecting him that much and would like to avoid CE if possible. Pt reports he doesn't use any gtts and no pain, irritation or discomfort today, OU. Complete Exam The 76 year old male presents for Complete Exam in the right eye and left eye monitoring cataracts ou. Patient denies any changes in vision ou. IOP ck The 75 year old male presents for IOP ck in the right eye and left eye, IOP elevated at last visit, low risk OAG. Hx of Cataracts and David Keratosis. Pt states vision OU has been the same, denies any pain or discomfort. Pt does not use any gtts. cataract check The 75 year old male presents for a 6 month cataract check ou. Patient denies any changes in vision ou. Difficulty reading The 74 year o ld male presents for a 6 month cataract check ou. Patient denies any changes in vision ou. Patient got new glasses in [place] a few months ago with Dr. Smith and states reads better with old glasses. Glasses recheck The 74 year old male presents for a Glasses recheck. Pt. states that his OD is a bit blurry and and he would like us to recheck the Rx. Pt is reading at 20/20 with his add of +2.50 but his OD distance lense is plano. Pt. states that there is no problem with his OS lens. Pt reports no pain or discomfort at this time and he is not taking any type of eye drops at this time. Cataract check The 74 year old male presents for Complete exam with Cataract check. HX Cat OU and David. Keratosis OD. Pt is unaware of any vision changes. No gtt. 6 month cataract check The 73 ye ar old male presents for 6 month cataract check. Hx of cataracts OU. Patient denies prior ocular surgeries or the use of ocular drops. Patient removes glasses for distance and are used mainly for near. No other visual complaints. routine exam Patient presents for a complete exam. Patient denies any changes in vision. Functional Status Date Functional Assessmen t No Information Instructions Date Instruction Additional Infor william Impression/Plan Impression/Plan Impression/Plan Impression/Plan Impression/Plan Impression/Plan Impression/Plan Impression/Plan Impression/Plan Impression/Plan Impression/Plan Impression/Plan Impression/Plan Impression/Plan Impression/Plan Impression/Plan Impression/Plan Impression/Plan Age-related nuclear cataract, right eye - Educational material provided Related to Age-related nuclear cataract, right eye Follow up - Return i n 6 months with Charly Perez M.D., FACS for Cataract check, IOP check, Pachs, BCVA and BAT prior to dilation Impression/Plan - Di scussed diagnosis in detail with patient. Discussed cataracts with pt and treatment options. pt also understands at this time vision does not qualify to have CE with insurance coverage. IOP slightly elevated without glaucoma drops. I'm not concerned about elevated IOP at this time. Will proceed without treatment at this time. Seborrheic keratosis discussed with patient, pt will let us know if irritation occurs. Return to clinic in 6 months for cataract check with IOP check, BVCA and BAT prior to dilation or sooner with any problems. Follow up - 6 months complete ex am Impression/Plan - IO P is stable today without medication. Will continue to monitor IOP without beginning treatment.Discussed cataract presence and progression. Pt needs Bat/BCVA on return visit prior to dilation. Return to the office in 6 months or sooner if vision worsens. Follow up - 4 months IOP check Impression/Plan - Ca taract presence discussed and symptoms of progression explained. Pt was instructed to return to the office sooner if vision worsens. Pt needs BAT and BCVA on return prior to dilation.IOP is slightly elevated today. Will monitor IOP closer without beginning medication, Return to the office in 4 months for IOP check. If IOP elevated next visit we will begin IOP medication Combined forms of ag e-related cataract, right eye - Surgery not indicated now. Related to Combined forms of age-related cataract, right eye Follow up - 6 months complete Impression/Plan - Ca taracts discussed and symptoms of progression and rec returning to clinic sooner if this occurs. Pt needs BAT and BCVA on return prior to dilation. Discussed IOL options with pt. Impression/Plan - Gi dutch Rx to remake right lens only. Related to Regular astigmatism, right eye - Cataracts account for the patient's complaints. No treatment currently recommended. The patient will monitor vision changes and contact us with any decrease in vision. Pt doesn't feel bothered by cataracts at this time. Return in 6 months for cat eval Related to SENILE NUCLEAR CATARACT - 6 months complete exam Related to See list of assessments above - Cataracts account for the patient's complaints. No treatment currently recommended. The patient will monitor vision changes and contact us with any decrease in vision. Discussed AREDs 2 with his family h/o Amd, mother - AREDs 2 recommended Related to See list of assessments above SENILE NUCLEAR CATAR ACT - Surgery not indicated now. Related to SENILE NUCLEAR CATARACT - Cataracts account for the patient's complaints. No treatment currently recommended. The patient will monitor vision changes and contact us with any decrease in vision. Related to SENILE NUCLEAR CATARACT - 6 months cat check , BCVA Bat prior to dilation Related to SENILE NUCLEAR CATARACT OTHER SBORHEIC KERAT OSIS, OD - vision not affected - will continue to monitor - Discussed diagnosis in detail with patient. No treatment is required at this time. Will continue to observe condition and or symptoms. Related to OTHER SBORHEIC KERATOSIS Cataract, Nuclear Sc lerosis, OU - vision not affected - will continue to monitor - Discussed cataract diagnosis with the patient. No treatment is required at this time. Will continue to observe condition and symptoms. Call if vision gets worse. Related to Cataract, Nuclear Sclerosis - 1 yr complete exam Related to Cataract, Nuclear Sclerosis Assessments Type Assessment Date assessment Presence of intraocular lens Sep assessment Papilloma assessment Dry eyes, bilateral Patient Care Teams Name Effective Dates (start - stop) Status Members No Information
--- OUTSIDE RECORDS SUMMARY | 2024-08-27 08:23 | XMS_ITS ---
Author Organization Unknown Address [address] [place] [address] [phone] Phone Care Team Providers Care Chute Builder Name Role Phone CLARE ATKINSON Attending Unavailable JOSS VALDEMAR Primary Unavailable Immunization Immunization Date Status Additional Notes Code Code System Influenza, split virus, quadrivalent, preservative 01/31/2023 Completed 158 C VX Influenza, MDCK, quadrivalen t, preservative 01/03/2022 Completed 186 CVX zoster recombinant 07/13/2020 Completed 187 CVX Influenza, high-dose, quadrivalent, PF 02/06/2021 Completed 197 CVX COVID-19, mRNA, LNP-S, PF, 3 0 mcg/0.3 mL dose 05/06/2020 Completed 208 CVX COVID-19, mRNA, LNP-S, PF, 3 0 mcg/0.3 mL dose 05/27/2020 Completed 208 CVX COVID-19, mRNA, LNP-S, PF, 3 0 mcg/0.3 mL dose 12/17/2020 Completed 208 CVX Pneumococcal conjugate PCV20 , polysaccharide [id number] conjugate, adjuvant, PF 09/30/2021 Completed 216 CVX COVID-19, mRNA, LNP-S, PF, 3 0 mcg/0.3 mL dose, kaci-sucrose 07/15/2021 Completed 217 CVX COVID-19, mRNA, LNP-S, PF, kaci-sucrose, 30 mcg/0.3 mL 03/09/2023 Completed 309 CVX Results US ECHO W/ COLOR - Completed : 10/31/2023 15:36 LOINC: See Scanned Image Attachment for Report Dictated By: Trans Initials: BG Trans Date: 11/03/23 10:37 <<REPDIST>> Social History Type Status Start Date End Date Code Code Syst em Smoking History Never smoker (Never Smoked) 013072391 SNOMED CT Sex Male Hospital Discharge Instructions Should you have any questions prior to discharge, please contact a member of your healthcare team. If you have left the hospital and have any questions, please contact your primary care physician. Reason For Referral No Data Found Plan of Treatment NM Spect Perf Rest Stress Multi (61306) 11/16/2023 Stress Test Chemical 11/16/2023 NM Spect Perf Rest Stress Multi (41206) 11/16/2023 Stress Test Chemical 11/16/2023 Encounters Encounter Diagnosis Start Date Code Code Sys tem Essential hypertension 10/31/2023 [id number] SNOME D-CT Personal Care Team Section Performer Name Performer Role Active Date Inactive VALDEMAR Reece PCP - Primary care physician Imaging Narrative Notes [facility] 11/03/2023 10:37 [place] [id number] RADIOLOGY REPORT Patient Number: [id number] Patient Name: BOLIVAR JAUREGUI GENE Type: O/P MR Number: [id number] : 1940 Age: 83 Sex: M Room #: Admit Date: 10/31/23 Discharge Date 10/31/23 Ordering Physician: CLARE ATKINSON Family Physician: JOSS Second Physician: X-Ray Number : [id number] US ECHO W/ COLOR [id number] COMPLETE:10/31/23 15:36 ASL [id number] (REASON-ECHO COMPLTE: HYPERTENSION See Scanned Image Attachment for Report Dictated By: Trans Initials: Trans Date: 11/03/23 10:37 <<REPDIST>>
--- OUTSIDE RECORDS SUMMARY | 2024-08-27 08:23 | XMS_ITS ---
Author Organization Unknown Address [address] [place] [address] [phone] Phone Care Team Providers Care Detention Deputy Name Role Phone CLARE ATKINSON Attending Unavailable [...] 208 CVX Pneumococcal conjugate PCV20 , polysaccharide [id number] conjugate, adjuvant, PF 09/30/2021 Completed 216 CVX COVID-19, mRNA, LNP-S, PF, 3 0 mcg/0.3 mL dose, kaci-sucrose 07/15/2021 Completed 217 CVX COVID-19, mRNA, LNP-S, PF, kaci-sucrose, 30 mcg/0.3 mL 03/09/2023 Completed 309 CVX Social History Type Status Start Date End Date Code Code Syst em Smoking History Never smoker (Never Smoked) [id number] SNOMED CT Sex Male Hospital Discharge Instructions Should you have any questions prior to discharge, please contact a member of your healthcare team. If you have left the hospital and have any questions, please contact your primary care physician. Reason For Referral No Data Found Plan of Treatment NM Spect Perf Rest Stress Multi (00460) 11/16/2023 Stress Test Chemical 11/16/2023 NM Spect Perf Rest Stress Multi (77701) 11/16/2023 Stress Test Chemical 11/16/2023 Encounters Encounter Diagnosis Start Date Code Code Sys tem Abnormal result of other cardiovascular function study 11/16/2023 SNOMED-CT Personal Care Team Section Performer Name Performer Role Active Date Inactive VALDEMAR Reece PCP - Primary care physician
--- OUTSIDE RECORDS SUMMARY | 2024-08-27 08:23 | XMS_ITS | Clinical Summary ---
Author [facility] Address [address] [place] [address] Care Team Providers Care Director Global Sales Name Role Phone Douglas Griffith MD Primary Care Provider [phone] Allergies No known active allergies Medications aspirin (ECOTRIN EC) 81 mg Tablet, Delayed Release (E.C.) Take 81 mg by mouth daily. Active tamsulosin (FLOMAX) 0.4 mg capsule Take 0.4 mg by mouth daily. 07/22/2022 Active clopidogreL (PLAVIX) 75 mg Tablet take one tablet by mouth daily 90 Tablet 2 04/17/2023 Active losartan (COZAAR) 25 mg tablet take one tablet by mouth daily 90 Tablet 2 04/17/2023 Active atorvastatin (LIPITOR) 40 mg tablet TAKE ONE TABLET BY MOUTH BEDTIME 90 Tablet 2 04/17/2023 Active metoprolol succinate (TOPROL XL) 50 mg Extended Release 24 hour tablet take one tablet by mouth daily 90 Tablet 2 04/17/2023 Active Active Problems Patient Care Coordination No te Formatting of this note migh t be different from the original. 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 Family History Medical History Relation Name Comments No Known Problems Son 1 No Known Problems Son 2 Relation Name Status Comments Son 1 Son 2 Social History Tobacco Use Types Packs/Day Years Used Date Smoking Tobacco: Never Tobacco Cessation:Counseling Given: Not Answered Sex and Gender Information Value Date Recorded Sex Assigned at Not on file Legal Sex Male 10:41 AM CDT Gender Identity Not on file Sexual Orientation Not on file Last Filed Vital Signs Vital Sign Reading Time Taken Comments Blood Pressure 116/60 10/18/2022 9:02 AM CDT Pulse 62 10/18/2022 9:02 AM CDT Temperature - - Respiratory Rate 16 10/18/2022 9:02 AM CDT Oxygen Saturation 98% 10/18/2022 9:02 AM CDT Inhaled Oxygen Concentration - - Weight 102.3 kg (225 lb 9.6 oz) 10/18/2022 9:02 AM CDT Height 185.4 cm (6' 1) 10/18/2022 9:02 AM CDT Body Mass Index 29.76 10/18/2022 9:02 AM CDT Plan of Treatment Health Maintenance Due Date Last Done Comments DTAP/TDAP/TD VACCINES (1 - Tdap) 09/13/1959 PNEUMOCOCCAL VACCINE 50+ YEARS (1 of 1 - PCV) 09/12/18 91 ZOSTER VACCINE (1 of 2) 1990 RSV VACCINE (60+ or ) (1 - 1-dose 75+ series) 09/13/2015 INFLUENZA VACCINE (#1) 2023 Insurance [employer] PPO MCR Care Teams Director Global Sales Relationship Specialty Start Date End Date Douglas Griffith MD [address] [place] [phone] PCP - General Family Practice 10/13/21
[2024-08-27 08:41] LABS: Add Urine Microscopic? NO; Appearance Urine Clear (Clear); Bilirubin Urine Negative (Negative); Blood Urine Negative (Negative); Color Urine Yellow (Yellow); Glucose Urine UA Negative (Negative); Ketones Urine Negative (Negative); Leukocyte Esterase Ur Negative (Negative); Nitrate Urine Negative (Negative); Protein Urine Negative (Negative); Specific Grav Ur 1.025 (1.010-1.020)
[2024-08-27 08:42] LABS: Basophils Absolute Auto 0.03 K/mm3 (0.00-0.10); Basophils Percent Auto 0.7 % (0.0-1.0); Eosinophils Absolute Auto 0.01 K/mm3 (0.02-0.50); Eosinophils Percent Auto 0.2 % (1.0-6.0); Hematocrit 36.6 % (37.0-46.0); Hemoglobin 12.1 g/dL (12.4-15.3); Immature Granulocyte Absolute 0.01 K/mm3 (0.00-0.00); Immature Granulocyte Percent A 0.2 % (0.0-0.0); Lymphocytes Absolute Auto 1.07 K/mm3 (1.10-4.50); Lymphocytes Percent Auto 23.5 % (18.0-42.0); Mean Corpuscular HGB Conc 33.1 g/dL (32-36); Mean Corpuscular Volume 87.8 fL (78.0-102.0); Mean Platelet Volume 9.1 fl (8.7-11.0); Monocytes Absolute Auto 0.44 K/mm3 (0.10-0.90); Monocytes Percent Auto 9.7 % (2.0-11.0); Neutrophils Absolute Auto 2.99 K/mm3 (1.70-7.20); Neutrophils Percent Auto 65.7 % (50.0-70.0); Platelet Count Result 194 K/mm3 (150-420); Red Blood Count 4.17 M/mm3 (4.70-6.10); Red Cell Distribution Width 12.7 % (11.6-14.4); White Blood Count 4.6 K/mm3 (4.8-10.8)
[2024-08-27 08:50] LABS: Creatinine Urine 154.3 mg/dL
[2024-08-27 08:54] LABS: MALB Creatinine Ratio 7.6 mg/g (0-30); Microalbumin Urine Random 11.7 mg/L (0-16.7)
[2024-08-27 09:32] LABS: Alanine Aminotransferase 15 U/L (6-50); Albumin Level 3.4 g/dL (3.5-5.1); Alkaline Phosphatase 85 U/L (38-126); Anion Gap 4 mmol/L (4-12); Aspartate Amino Transferase 22 U/L (17-59); Bilirubin,Total 0.9 mg/dL (0.2-1.3); Blood Urea Nitrogen 19 mg/dL (9-20); Calcium 8.7 mg/dL (8.4-10.2); Carbon Dioxide 25 mmol/L (22-30); Chloride 112 mmol/L (98-107); Cholesterol 112 mg/dL (0-200); Estimated Glomerular Filt Rate > 60; Glucose 93 mg/dL (65-110); HDL Direct 42 mg/dL; LDL Cholesterol Calculated 54 mg/dL (<130); Osmolality Calculated 294 mOsm/kg (285-295); Potassium 4.3 mmol/L (3.4-5.0); Sodium 141 mmol/L (137-145); Total Protein 5.7 g/dL (6.3-8.2); Triglycerides 82 mg/dL (<150)
[2024-08-27 09:47] LABS: Vitamin D 25 Hydroxy 32.8 ng/mL
== END 2024-08-27 08:14 | disposition home or self-care (01) ==
LOC: CHSLAB 08:15
PROVIDERS: PCP Family Medicine; Visit Provider Family Medicine
DX: R05.8 Other specified cough (principal); I10 Essential (primary) hypertension; E78.2 Mixed hyperlipidemia; Z79.899 Other long term (current) drug therapy
CPT/HCPCS: 36415; 71046; 80053; 80061; 81003; 82043; 82306; 84443; 85025

== ENCOUNTER 2024-09-26 07:11 | Outpatient (CLI) | payer MEDICARE, SELFPAY ==
--- NOTE | 2024-09-26 | CONSULT_PTH ---
PATIENT: Bashir Salazar [place] [facility]#:[id number] AGE/SX: 84/M ROOM: RE09/26/[address]: Douglas Griffith MD : 1940 BED: DIS: 09/26/2024 SPEC #: [id number] RECD: 09/26/24 07:28 STATUS: ROMIE REQ #: [id number] DELONTE: 09/26/24 00:[address]: Douglas Griffith DEPT: [facility] Consult RECD BY: Jeimy Kathleen MLT, ([facility]) Tissues: A - Peripheral Smear Procedures: Hematology Consult
--- OUTSIDE RECORDS SUMMARY | 2024-09-26 07:14 | XMS_ITS | Encounter Summary ---
Author Organization [facility] Address [address] [place] [address] Care Team Providers Care Hammer Mill Operator Name Role Phone Carl Wheeler MD Unavailable [phone] Felice Cantu MD Unavailable Ramsey ZhuP Primary Care Provider [phone] Ramsey hZu Primary Care Provider [phone] Douglas Griffith MD Primary Care Provider [phone] Kosta Herring MD Unavailable Unavailable Halie Guerrero MD Unavailable Encounter Details Date Type Department Care Team (Late st Contact Info) Description 09/03/2014 Abstract [facility] [address] [place] [address] Carl Wheeler MD [address] [place] [address] Social History Tobacco Use Types Packs/Day Years Used Date Smoking Tobacco: Former Comments:History of smoking > 20 yrs ago, quit in 1968. Alcohol Use Standard Drinks/Week Comments No 0 (1 standard drink = 0.6 oz pur e alcohol) Sex and Gender Information Value Date Recorded Sex Assigned at Not on file Legal Sex Male 10:51 PM CDT Gender Identity Not on file Sexual Orientation Not on file documented as of this encounter Plan of Treatment Upcoming Encounters Date Type Department Care Team (Late st Contact Info) Description 10/03/2024 8:15 AM CDT Office Visit [facility] [address] [phone] Halie Guerrero MD [address] [place] [address] documented as of this encounter Visit Diagnoses Not on filedocumented in this encounter Care Teams Hammer Mill Operator Relationship Specialty Start Date End Date Ramsey Zhu FNP [address] [place] [phone] PCP - General Nurse Practitioner Family 10/24/1811/12 Ramsey Zhu FNP [address] [place] [phone] PCP - General Nurse Practitioner Family 11/22/1809/10 Douglas Griffith MD [address] [place], [place] [phone] PCP - General FAMILY PRACTICE 09/30/19 Carl Wheeler MD [place] Manager Wellness CARDIOVASCULAR DISEASE 09/04/15 12/21/20 Felice Cantu MD [address] [place] [phone] EP Manager Wellness CLINICAL CARDIAC ELECTROPHYSIOLOGY 09/04/15 Kosta Herring MD [address] [place] [address] Consulting Physician INTERVENTIONAL CARDIOLOGY 12/22/20 09/09/23 Halie Guerrero MD [address] [place] [address] Consulting Physician CARDIOVASCULAR DISEASE 09/10/23 documented as of this encounter
--- OUTSIDE RECORDS SUMMARY | 2024-09-26 07:15 | XMS_ITS | Continuity of Care Document ---
Author Organization [employer] [facility] [place] [id number] [place] [address] [place] [id number] Phone Care Team Providers Care Wharf Tender Helper Name Role Phone Lucrecia Dillon OD Unavailable [...] tablet once daily Not Available - Active metoprolol succinate ER 50 mg tablet,extended release 24 hr take 1 tablet by oral route every day 50 MG - Active losartan 25 mg tablet take 1 tablet by oral route every day 25 MG - Active clopidogrel 75 mg tablet take 1 tablet by oral route every day 75 MG - Active atorvastatin 40 mg tablet take 1 tablet by oral route every day 40 MG - Active Centrum Silver 0.4 mg-300 [...] Diagnoses Date Provider Providers Copied on Encounter [facility], [facility] [address], [place], [place], [address], tel:[phone] [place] Professional Complete Exam (chief complaint) Presence of intraocular lensPapilloma Dry eyes, bilateral 202 4 Santana OD Lucrecia. [address] [place] [address] [address], [address], [place], [place], [address], [place]. tel:[phone] Ame Sahni MD.Referri Provider: Charly Abernathy, [address], [place], [address] . tel:[phone] [facility], [address], [place], [place], [address], tel:[phone] [place] Professional Complete Exam (chief complaint) Epiretinal membrane (ERM) of right eyePresence of intraocular lensDry eye syndrome of left lacrimal gland 3 Onel Gonzalez. [address] [facility] [address], [facility] [address], [place], [place], [address], [place]. tel:[phone] Ame Sahni MD.Referri ng Provider: Charly Abernathy, [address], [place], [address] . tel:[phone] [employer] [facility], [facility] [address], [place], [place], [address], [place] tel:[phone] [place] Professional Post-Op (chief complaint) Post op visit 2 Onel Gonzalez. [address] [facility], [address], [place], [place], [address], [place]. tel:[phone] Ame Sahni MD.Referri ng Provider: Charly Abernathy, [address], [place], [address] . tel:[phone] [employer] [facility] [employer] [facility], [address], [place], [place], [address], [place] tel:[phone] [place] Professional Complete Exam (chief complaint) Presence of intraocular lensOther secondary cataract, right eyeEpiretinal membrane (ERM) of right eyeDry eye syndrome of left lacrimal glandPapillom a 2 Onel Gonzalez. [address], [facility] [address], [place], [place], [address], [place]. tel:[phone] Ame Sahni MD.Referri ng Provider: Charly Abernathy, [employer] [address], [place], [address] . tel:[phone] [facility] [facility], [address], [place], [place], [address], [place] tel:[phone] [place] Professional Post-Op (chief complaint) Post op visit 1 Onel Gonzalez. [address], [address], [place], [place], [address], [place]. tel:[phone] Ame Sahni MD.Referri ng Provider: Charly Abernathy, [address], [place], [address] . tel:[phone] [employer] [facility], [facility] [address], [place], [place], [address], [place] tel:[phone] [place] Professional Blurry vision (chief complaint) Post op visit 1 Onel Gonzalez. [address] [facility], [address], [place], [place], [address], [place]. tel:[phone] Ame Sahni MD.Referri ng Provider: Charly Abernathy, [facility] [address], [place], [address] . tel:[phone] [facility], [facility] [address], [place], [place], [address], [place] [phone] [place] Professional Post-Op (chief complaint) Post op visit 1 No Information Referring Provider: Charly Abernathy, [facility] [address], [place], [address] . tel:[phone] [facility], [facility] [address], [place], [place], [address], [place] tel:[phone] [place] Professional 1 day CE PO (chief complaint) Post op visit 1 Onel Gonzalez. [address], [address], [place], [place], [address], . tel:[phone] Referring Provider: Charly Abernathy, [address], [place], [address] . tel:[phone] [facility], [address] [place] [address] [address], [place], [place], [address], [place] tel:[phone] [facility] [place] No Information 1 Chris Parks. [address] [place] [address] [facility], [address], [place], [place], [address], [place]. tel:[phone] Referring Provider: Charly Abernathy, [address] [place] [address] [address], [place], [address] . tel:[phone] [facility], [address] [place] [address] [address], [place], [place], [address], [place] tel:[phone] [place] No Information 1 Chris Parks. [address] [place] [address] [facility], [address], [place], [place], [address], [place]. [phone] Referring Provider: Charly Abernathy, [address] [place] [address] [facility] [address], [place], [address] . tel:[phone] Office/outpa [place]ient Visit, [facility] [address] [place] [address] [address], [place], [place], [address], [place] tel:[phone] [place] Professional Cataract evaluation (chief complaint) Combined forms of age-related cataract, left eyePresence of intraocular lens 1 Chris Parks. [address] [place] [address] [facility], [address], [place], [place], [address], [place]. tel:[phone] Ame Sahni MD.Referri ng Provider: Charly Abernathy, [address] [place] [address] [facility] [address], [place], [address] . tel:[phone] Office/outpa tient Visit, [facility], [address] [place] [address] [address], [place], [place], [address], [place] [phone] [place] Professional Cataract Eval OS (chief complaint) Combined forms of age-related cataract, left eyePresence of intraocular lensOther secondary cataract, right eye Dec-0 0 Chris Parks. [facility] [address], [address], [place], [place], [address], [place]. tel:[phone] Ame Sahni MD.Referri ng Provider: Charly Abernathy, [facility] [address], [place], [address] . tel:[phone] Office/outpa tient Visit, [facility], [facility] [address], [place], [place], [address], [place] tel:[phone] SEC [place] N [place] 1 month retina FU (chief complaint) Macular edema Cabrera- 0 Chris Parks. [facility] [address], [address], [place], [place], [address], [place]. tel:[phone] Specialist : Ame Sahni MD, [address] [facility] [address], [place], [address]. tel:[phone] cialist: Ame Sahni MD, [address] [facility] [address], [place], [address]. tel:[phone] erring Provider: Charly Abernathy, [facility] [address], [place], [address] . tel:[phone] [facility] [facility], [facility] [address], [place], [place], [address], [place] tel:[phone] SEC [place] Post-Op (chief complaint) Post op visitMacular edema July- 0 Chris Parks. [facility] [address], [address], [place], [place], [address], [place]. tel:[phone] Referring Provider: Charly Abernathy, [facility] [address], [place], [address] . tel:[phone] [facility], [facility] [address], [place], [place], [address], [place] tel:[phone] SEC Myra Bertrand Post-Op (chief complaint) Post op visit Apr-2 0-202 0 Chris Parks. [facility] [address], [address], [place], [place], [address], [place]. tel:[phone] Referring Provider: Charly Abernathy, [facility] [address], [place], [address] . tel:[phone] [facility], [address] [place], [place] [address]crest [address], [place], [place], [address], [place] tel:[phone] SEC [place] Post-Op (chief complaint) Presence of intraocular lens May- 0 Onel Gonzalez. [address] [facility], [address], [place], [place], [address], [place]. [phone] Referring Provider: Charly Abernathy, [facility] [address], [place], [address] . tel:[phone] [facility], [facility] [address], [place], [place], [address], [place] tel:[phone] [facility] [place] No Information 0 Chris Parks. [facility] [address], [address], [place], [place], [address], [place]. [phone] Referring Provider: Charly Abernathy, [address], [place], [address] . tel:[phone] [facility], [facility] [address], [place], [place], [address], [place] [phone] No Information 0 Chris Parks. [facility] [address], [address], [place], [place], [address], [place]. tel:[phone] Referring Provider: Charly Abernathy, [address], [place], [address] . tel:[phone] Office/outpa tient Visit, [facility], [address] [place] [address] [address], [place], [place], [address], tel:[phone] SEC [place] Professional Cataract check (chief complaint) Combined forms of age-related cataract, bilateralSebo rrheic keratosis 0 Chris Parks. [address] [place] [address] [employer], [address], [place], [place], [address], [place]. tel:[phone] Referring Provider: Charly Abernathy, [address] [place] [address] [facility] [address], [place], [address] . tel:[phone] [facility], [address] [place] [address] [address], [place], [place], [address], tel:[phone] SEC [place]LL Professional Complete Exam (chief complaint) Combined forms of age-related cataract, bilateralOpen angle with borderline findings, low risk, bilateral 9 Chris Parks. [address] [place] [address] [facility], [address], [place], [place], [address], [place]. tel:[phone] Referring Provider: Charly Abernathy, [address] [place], [place] [address]cre[facility] [address], [place], [address] . tel:[phone] Office/outpa tient Visit, [facility], [address] [place] [address] [address], [place], [place], [address], [place] tel:[phone] SEC [place] DELL Professional Cataract ck (chief complaint) Combined forms of age-related cataract, bilateralSebo rrheic verruca 9 Chris Parks. [address] [place], [place] [address]crest [employer], [address], [place], [place], [address], . tel:[phone] Referring Provider: Charly Abernahty, [address] [place], [place] [address] [address], [place], [address] . tel:[phone] [facility], [facility] [address], [place], [place], [address], [place] tel:[phone] [place] Professional Complete Exam (chief complaint) Combined forms of age-related cataract, bilateralOpen angle with borderline findings, low risk, bilateral Sep- 0 8 Chris Parks. [facility] [address], [address], [place], [place], [address], [place]. tel:[phone] Referring Provider: Charly Abernathy, [facility] [address], [place], [address] . tel:[phone] [facility], [facility] [address], [place], [place], [address], [place] [phone] [place] Professional Complete Exam (chief complaint) Age-related nuclear cataract, right eyeAge-relate d nuclear cataract, left eyeSeborrheic keratosisOpen angle with borderline findings, low risk, bilateral 7 Chris Parks. [facility] [address], [address], [place], [place], [address], [place]. [phone] Referring Provider: Charly Abernathy, [facility] [address], [place], [address] . tel:[phone] Office/outpa tient Visit, [facility], [facility] [address], [place], [place], [address], [place] [phone] SEC [facility] IOP ck (chief complaint) No Information 7 Chris Parks. [facility] [address], [address], [place], [place], [address], [place]. tel:[phone] Referring Provider: Charly Abernathy, [facility] [address], [place], [address] . tel:[phone] Office/outpa tient Visit, [facility], [facility] [address], [place], [place], [address], [place] tel:[phone] SEC [place] SHARPE Professional cataract check (chief complaint) No Information 6 [place] Charly. [facility] [employer] [employer], [address], [place], [place], [address], [place]. tel:[phone] Referring Provider: Charly Abernathy, [address] [place] [address] [facility] [address], [place], [address] . tel:[phone] Office/outpa tient Visit, [facility], [address] [place] [address] [address], [place], [place], [address], [place] tel:[phone] SEC [place] SHARPE Professional Difficulty reading (chief complaint) No Information 6 Chris Charly. [facility] [employer] [employer], [address], [place], [place], [address], [place]. tel:[phone] Referring Provider: Charly Abernathy, [facility] [address] [facility] [address], [place], [address] . tel:[phone] [facility], [address] [place] [address] [address], [place], [place], [address], [place] tel:[phone] SEC Myra Alegria [place] Glasses recheck (chief complaint) No Information 0 5 Sarah Clifford. [address] [facility], [address], [place], [place], [address], [place]. tel:[phone] Referring Provider: Charly Abernathy, [facility] [address] [facility] [address], [place], [address] . tel:[phone] [facility], [address] [place] [address] [address], [place], [place], [address], [place] tel:[phone] SEC Myra N [place] No Information 2 5 [employer]. [address] [facility], [address], [place], [place], [address], [place]. tel:[phone] Referring Provider: Charly Abernathy, [facility] [address], [place], [address] . tel:[phone] sulting Provider: Delfin Lopez, [address] [facility] [address], [place], [address] . tel:[phone] [facility] [employer] [facility], [facility] [address], [place], [place], [address], [place] [phone] SEC [place] Professional Cataract check (chief complaint) No Information 5 Chris Parks. [facility] [address], [address], [place], [place], [address], [place]. [phone] Referring Provider: Charly Abernathy, [facility] [address], [place], [address] . tel:[phone] Office/outpa tient Visit, [facility] [employer] [facility], [facility] [address], [place], [place], [address], [place] [phone] [place] Professional 6 month cataract check (chief complaint) No Information 5 Chris Parks. [facility] [address], [address], [place], [place], [address], [place]. [phone] Referring Provider: Charly Abernathy, [facility] [address], [place], [address] . tel:[phone] [facility], [facility] [address], [place], [place], [address], [place] [phone] [place] Professional routine exam (chief complaint) No Information 4 Chris Parks. [facility] [address], [address], [place], [place], [address], [place]. [phone] Referring Provider: Charly Abernathy, [facility] [address], [place], [address] . tel:[phone] [facility], [address] [facility] [place] [address], [place], [place], [address], tel:[phone] LUIGI SHARPE Professional No Information 2 Chris Parks. [address] [facility], [address], [place], [place], [address], [place]. tel:[phone] Referring Provider: Charly Abernathy, [address] [facility] [address], [place], [address] . tel:[phone] Family History Family Member Type Diagnosis Age At Onset Mother Problem (finding) diabetes melli tus in first degree relative Payers Payer name Insurance type Covered democrat ID Authoraprila botsonaziza(s) [employer] Mdcr Gold Adv Prime CI [id number] Social History Type Description Quantity Date Captured [...] completed Referral Referred To: [facility]E [facility] [address] [place], [phone] Ordered: Referrals: Allopathic & Osteopathic Physicians : [...] vision ou. Patient got new glasses in [place] a few months ago with Dr. Smith [...] 6 months or sooner if vision worsens. Impression/Plan - Ca taract presence discussed and [...] age-related cataract, right eye Follow up - 4 months IOP check Follow up - 6 months complete Impression/Plan [...]
--- OUTSIDE RECORDS SUMMARY | 2024-09-26 07:15 | XMS_ITS | Clinical Summary ---
Author Organization [facility] Address [address] [place] [address] Care Team Providers Care Business Ethics Professor Name Role Phone Felice Cantu MD Unavailable Douglas Griffith MD Primary Care Provider [phone] Halie Guerrero MD Unavailable Allergies Active Allergy Reactions Criticality Noted Date Comments Bobby Inhibitors Cough 09/23/2016 Medications * This document contains information received from the source organization and may not represent a complete record from that organization. aspirin EC (ASPIRIN) 81 MG EC tablet Take 1 tablet by mouth daily. 3 Active tamsulosin 0.4 MG Cap Take 1 capsule by mouth daily. 6 Active NITROSTAT 0.4 MG SL tablet TAKE 1 TABLET UNDER TONGUE, FOR CHEST PAIN DIRECTED 25 tablet 2 8 Active prednisoLONE acetate 1 % ophthalmic suspension 0 Active trimethoprim-polym yxin b ophthalmic solution 0 Active ketorolac 0.5 % ophthalmic solution 0 Active spironolactone (ALDACTONE) 25 MG tablet Take 0.5 tablets (12.5 mg total) by mouth daily. 15 tablet 11 4 Active atorvastatin (LIPITOR) 40 MG tabletIndications: Coronary artery disease involving [place] coronary artery of [place] heart without angina pectoris,Essential hypertension,Mixed hyperlipidemia TAKE ONE TABLET BY MOUTH BEDTIME 90 tablet 3 4 Active losartan (COZAAR) 25 MG tabletIndications: Coronary artery disease involving [place] coronary artery of [place] heart without angina pectoris,Essential hypertension,Mixed hyperlipidemia TAKE ONE TABLET BY MOUTH DAILY 90 tablet 3 4 Active carvedilol (COREG) 6.25 MG tablet TAKE 1 TABLET (6.25 MG TOTAL) BY MOUTH 2 (TWO) TIMES DAILY. 180 tablet 1 5 Active clopidogrel (PLAVIX) 75 MG tablet Take 1 tablet (75 mg total) by mouth daily. 90 tablet 3 5 Active CLOPIDOGREL 75 MG tablet TAKE ONE TABLET BY MOUTH DAILY 90 tablet 3 1 025 Discontin ued(Reord er) Active Problems Problem Noted Date Diagnosed Date Coronary artery disease invo lving [place] coronary artery of [place] heart without angina pectoris Essential hypertension Mixed hyperlipidemia LV dysfunction Overview (09/23/2015): mild LV dysfunction Hyperlipidemia HTN (hypertension) CAD (coronary artery disease) Encounters * This document contains information received from the source organization and may not represent a complete record from that organization. Date Type Department Care Team Description 09/19/2024 [facility]phone [facility] [address] [place] [address] Halie Guerrero MD Medication Request from Last 3 Months Family History Relation Status Comments Brother Alive Father (Age 89) Maternal Grandfather Maternal Grandmother Mother (Age 89) Paternal Grandfather Paternal Grandmother Sister Alive Social History Tobacco Use Types Packs/Day Years Used Date Smoking Tobacco: Former Cigarettes Q uit: 1968 Smokeless Tobacco: Never Tobacco Cessation:Counseling Given: No Comments:History of smoking > 20 yrs ago, quit in 1968. Alcohol Use Standard Drinks/Week Comments Yes 1.7 (1 standard drink = 0.6 oz p ure alcohol) 1-2 beers per week Sex and Gender Information Value Date Recorded Sex Assigned at Not on file Legal Sex Male 10:51 PM CDT Gender Identity Not on file Sexual Orientation Not on file Last Filed Vital Signs Vital Sign Reading Time Taken Comments Blood Pressure 132/74 10/05/2023 2:27 PM CDT Pulse 68 10/05/2023 2:26 PM CDT Temperature - - Respiratory Rate 16 10/05/2023 2:26 PM CDT Oxygen Saturation 97% 10/05/2023 2:26 PM CDT Inhaled Oxygen Concentration - - Weight 96.6 kg (213 lb) 10/05/2023 2:26 PM CDT Height 185.4 cm (6' 1) 10/05/2023 2:26 PM CDT Body Mass Index 28.1 10/05/2023 2:26 PM CDT Plan of Treatment Upcoming Encounters Date Type Department Care Team (Late st Contact Info) Description 10/03/2024 8:15 AM CDT [facility] [address] [place] [address] Halie Guerrero MD [address] [place] [phone] Health Maintenance Due Date Last Done Comments DTaP, Tdap and Td Vaccines (1 - Tdap) 09/13/1959 Annual Medicare Wellness Visit 2005 RSV Immunization or 60+ Years (1 - 1-dose 75+ series) 09/13/2015 Zoster Vaccines (2 of 2) 09/07/2020 07/13/2020 ASCVD LDL 10/16/2021 10/16/2020, 09/10, 11/19/2018, Additional history exists COVID-19 Vaccine ( season) 2023 03/09/2023, 07/15/2021, 12/17/2020, Additional history exists Pneumococcal Vaccine: 50+ Years Completed 09/30/2021 Meningococcal B Vaccine Aged Out No l onger eligible based on patient's age to complete this topic Meningococcal Vaccine Aged Out No linda phli eligible based on patient's age to complete this topic RSV Immunizations Under 20 Months Aged Out No longer eligible based on patient's age to complete this topic Procedures Procedure Name Priority Date/Time Associated Diagnosis Comments LIPID PANEL Routine 10/16/2020 Mixed hyperlipidemia from Last 3 Months or Most Recently Relevant to Health Maintenance Results * LIPID PANEL (10/16/2020) CHOLESTEROL 119 HDL 50 TRIGLYCERIDES 64 LDL (CALCULATED) 56 10/16/2020 Carl Wheeler MD LABORATORY Yoselyn hughes Result from Last 3 Months or Most Recently Relevant to Health Maintenance Insurance [employer] Care Teams Business Ethics Professor Relationship Specialty Start Date End Date Douglas Griffith MD [address] [place] [address] PCP - General FAMILY PRACTICE 09/30/19 Felice Cantu MD [address] [place] [address] EP Fashion Coordinator CLINICAL CARDIAC ELECTROPHYSIOLOGY 09/04/15 Halie Guerrero MD [address] [place] [address] Consulting Physician CARDIOVASCULAR DISEASE 09/10/23
--- OUTSIDE RECORDS SUMMARY | 2024-09-26 07:15 | XMS_ITS | Encounter Summary ---
Author Organization [facility] Address [address] [place] [address] Care Team Providers Care Auto Service Advisor Name Role Phone Douglas Griffith MD Primary Care Provider [phone] Reason for Visit * Reason Comments Med Refill Encounter Details Date Type Department Care Team (Late st Contact Info) Description 09/17/2024 Refill [facility] Heart and Vascular - [address] [place] [address] Carl Wheeler MD [address] [place] [address] Social History Tobacco Use Types Packs/Day Years Used Date Smoking Tobacco: Never Sex and Gender Information Value Date Recorded Sex Assigned at Not on file Legal Sex Male 10:41 AM CDT Gender Identity Not on file Sexual Orientation Not on file documented as of this encounter Plan of Treatment Not on file documented as of this encounter Visit Diagnoses Not on filedocumented in this encounter Care Teams Auto Service Advisor Relationship Specialty Start Date End Date Douglas Griffith MD [address] [place] [id number] PCP - General Family Practice 10/13/21 documented as of this encounter
--- OUTSIDE RECORDS SUMMARY | 2024-09-26 07:15 | XMS_ITS ---
Author Organization Unknown Address [address] [place] [phone] Phone Care Team Providers Care Publicity Person Name Role Phone CLARE ATKINSON Attending Unavailable [...] 208 CVX Pneumococcal conjugate PCV20 , polysaccharide [id number] conjugate, adjuvant, PF 09/30/2021 Completed 216 CVX [...] em Smoking History Never smoker (Never Smoked) [id number] SNOMED CT Sex Male Hospital Discharge Instructions Should you have any questions prior to discharge, please contact a member of your healthcare team. If you have left the hospital and have any questions, please contact your primary care physician. Reason For Referral No Data Found Plan of Treatment NM Spect Perf Rest Stress Multi (09360) 11/16/2023 Stress Test Chemical 11/16/2023 NM Spect Perf Rest Stress Multi (97043) 11/16/2023 Stress Test Chemical 11/16/2023 Encounters Encounter Diagnosis Start Date Code Code Sys tem Essential hypertension 10/31/2023 [id number] SNOME D-CT Personal Care Team Section Performer Name Performer Role Active Date Inactive VALDEMAR Reece PCP - Primary care physician Imaging Narrative Notes [facility] 11/03/2023 10:37 [place] [id number] RADIOLOGY REPORT Patient Number: [id number] Patient Name: BOLIVAR JAUREGUI GENE Type: O/P MR Number: [id number] : 1940 Age: 83 Sex: M Room #: Admit Date: 10/31/23 Discharge Date 10/31/23 Ordering Physician: CLARE ATKINSON Family Physician: JOSS Second Physician: X-Ray Number : [id number] US ECHO W/ COLOR [id number] COMPLETE:10/31/23 15:36 ASL [id number] (REASON-ECHO COMPLTE: HYPERTENSION See Scanned Image Attachment for Report Dictated By: Trans Initials: Trans Date: 11/03/23 10:37 <<REPDIST>>
--- OUTSIDE RECORDS SUMMARY | 2024-09-26 07:15 | XMS_ITS ---
Author Organization Unknown Address [address] [place] [phone] Phone Care Team Providers Care Rn Emergency Room Name Role Phone CLARE ATKINSON Attending Unavailable [...] 208 CVX Pneumococcal conjugate PCV20 , polysaccharide [id number] conjugate, adjuvant, PF 09/30/2021 Completed 216 CVX COVID-19, mRNA, LNP-S, PF, 3 0 mcg/0.3 mL dose, kaci-sucrose 07/15/2021 Completed 217 CVX COVID-19, mRNA, LNP-S, PF, kaci-sucrose, 30 mcg/0.3 mL 03/09/2023 Completed 309 CVX Social History Type Status Start Date End Date Code Code Syst em Smoking History Never smoker (Never Smoked) [id number] SNOMED CT Sex Male Hospital Discharge Instructions Should you have any questions prior to discharge, please contact a member of your healthcare team. If you have left the hospital and have any questions, please contact your primary care physician. Reason For Referral No Data Found Plan of Treatment NM Spect Perf Rest Stress Multi (20853) 11/16/2023 Stress Test Chemical 11/16/2023 NM Spect Perf Rest Stress Multi (14791) 11/16/2023 Stress Test Chemical 11/16/2023 Encounters Encounter Diagnosis Start Date Code Code Sys tem Abnormal result of other cardiovascular function study 11/16/2023 SNOMED-CT Personal Care Team Section Performer Name Performer Role Active Date Inactive VALDEMAR Reece PCP - Primary care physician
--- OUTSIDE RECORDS SUMMARY | 2024-09-26 07:15 | XMS_ITS | Clinical Summary ---
Author Organization [facility] Address [address] [place] [address] Care Team Providers Care Music Coordinator Name Role Phone Douglas Griffith MD Primary Care Provider [phone] Allergies No known active allergies Medications aspirin [...] migh t be different from the original. 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 Encounters Date Type Department Care Team Description 09/17/2024 Refill [facility] Heart and Vascular - [address] [place] [address] Carl Wheeler MD 09/16/2024 [facility] Heart and Vascular - [address] [place] [address] Carl Wheeler MD from Last 3 Months Family History Medical History Relation Name Comments [...] 1-dose 75+ series) 09/13/2015 INFLUENZA VACCINE (#1) 2024 Insurance [employer] PPO MCR Care Teams Music Coordinator Relationship Specialty Start Date End Date Douglas Griffith MD [address] [place] [address] PCP - General Family Practice 10/13/21
[2024-09-26 07:29] LABS: Hematocrit 39.5 % (37.0-46.0); Hemoglobin 12.9 g/dL (12.4-15.3); Immature Granulocyte Percent A 0.3 % (0.0-0.0); Lymphocytes Absolute Auto 1.24 K/mm3 (1.10-4.50); Mean Corpuscular HGB Conc 32.7 g/dL (32-36); Mean Corpuscular Hemoglobin 28.7 pg (27.0-31.0); Mean Corpuscular Volume 88.0 fL (78.0-102.0); Nucleated Red Blood Cells Absolute Auto 0.00 K/mm3 (0.00-0.00); Nucleated Red Blood Cells Perc 0.0 % (0-0.0); Platelet Count Result 208 K/mm3 (150-420); Red Blood Count 4.49 M/mm3 (4.70-6.10); White Blood Count 6.4 K/mm3 (4.8-10.8)
[2024-09-26 08:11] LABS: Iron 63 ug/dL (49-181)
[2024-09-26 08:21] LABS: Percent Iron Saturation 20 % (20-50)
[2024-09-26 08:48] LABS: Ferritin 134.00 ng/mL (11.1-264)
[2024-09-26 09:25] LABS: Vitamin B12 299.0 pg/mL (239-931)
== END 2024-09-26 07:12 | disposition home or self-care (01) ==
LOC: CHSLAB 07:13
PROVIDERS: PCP Family Medicine; Visit Provider Family Medicine
DX: D64.9 Anemia, unspecified (principal)
CPT/HCPCS: 36415; 82607; 82728; 82746; 83540; 83550; 85025